=== PATIENT | female | born 1985 | race Hispanic/Latino ===

== ENCOUNTER 2022-05-13 09:31 | Emergency (ER) | payer OTHER ==
--- OUTSIDE RECORDS SUMMARY | 2022-05-13 09:35 | XMS REPORT | Continuity of Care Document ---
:1985 Author Organization [facility] t Address [address] [place] [address] Care Team Providers Name Role Phone MADDISON CAMERON Primary Care Physician Unavailable Neeru SHERMAN, Jn Vera Attending Clinician Miranda Mcintosh MD Attending Clinician MIRANDA MCINTOSH Attending Clinician Unavailable Miranda Mcintosh MD Admitting Clinician MIRANDA MCINTOSH Admitting Clinician Unavailable Payers Payer Name Policy Type Policy Number Effective Date Expiration Date [facility] [id number] 2016 CHOICE [place] ST[place] 00:00:00 Problems Condition Condition Condition Status Onset Resolution Last Treating Co mments Source Name Details Category Date Date Treatment Clinician Date Chest Chest Disease Active Univers pain, pain, 12-17 ity of unspec[place] d type 00 [place] Primary Primary Disease Active Univers hypertensi hypertensi - it y of on on 00:00: [address] Branch Anxiety Anxiety Disease Active Univers -23 ity of 00:00: [place] [address] Medical Branch Single Single Disease Active Univers liveborn, liveborn, 6-09 ity of born in born in 00:00: [facility], [facility], 00 [place]i [place] delivered delivered Bran ch by by delivery delivery Status Status Disease Active Univers post post 6 [place]y of repeat low repeat [place] transverse transverse 00 Me [place]ical [place] section section Obesity Obesity Disease Active Univers (BMI (BMI 6-08 ity of 30-39.9) 30-39.9) 00:00: [place] 00 Medical Branch 39 weeks 39 weeks Disease Active Unive rs gestation gestation 607 ity of of of 00:00: [place] 00 [facility] Previous Previous Disease Active Unive rs 607 ity of section section 00:00: [place] complicati complicati 00 Me dical ng Branch , , antepartum antepartum condition condition or or complicati complicati on on Encounter Encounter Disease Active Uni vers for tubal for tubal 08-31 ity of ligation ligation 00:00: [place] 00 Medical Branch Subchorion Subchorion Disease Active 2016-03 U nivers ic ic 1-30 ity of hematoma hematoma 00:00: [place] in first in first 00 Medica l trimester, trimester, Br anch single or single or unspecifie unspecifie d fetus d fetus Abdominal Abdominal Disease Active 2016-03 Uni vers pain pain 1-30 [place] of affecting affecting 00[place] [facility] Allergies, Adverse Reactions, Alerts Allergy Allergy Status Severity Reaction(s) Onset Inactive Treating Comm ents Source Name Type Date Date Clinician Loperami Propensi Active Rash 2016-03 Univer s de Hcl ty to 1-29 ity of adverse 00:00: [place] reaction 00 Medical s Branch LOPERAMI DRUG Active Rash 2016-03 Univers DE HCL INGREDI 1-29 ity of 00:00: [place] 00 Medical Branch Amoxicil Propensi Active Hives 2016-03 Univer s sommer ty to 0-06 ity of adverse 00:00: [place] reaction 00 Medical s Branch AMOXICIL DRUG Active Hives 2016-03 Univers SOMMER INGREDI 0-06 ity of 00:00: [place] 00 Medical Branch Social History Social Habit Start Date Stop Date Quantity Comments Source History [facility] o f Alcohol Frequency [place] M edical Branch History [facility] o f Alcohol Std [place] Medical Drinks Branch History [facility] o f Alcohol Binge [place] Medic al Branch Exposure to 2021-12-07 2021-12-17 Not sure University of SARS-CoV-2 00:00:00 08:32:00 [facility] (event) [place] Tobacco use and 2021-12-17 2021-12-17 Smokeless tobacco Un iversity of exposure 00:00:00 00:00:00 non-user [facility] Alcohol intake 2021-12-17 2021-12-17 Current drinker Unive rsity of 00:00:00 00:00:00 of alcohol [facility] (finding) [place] Alcohol Comment 2021-12-17 2021-12-17 social Universit y of 00:00:00 00:00:00 [facility] Sex Ass[birth year] At [birth year] Universit y of 00:00:00 00:00:00 [facility] Smoking Status Start Date Stop Date Source Never smoked tobacco [facility] Medications Ordered Filled Start Stop Current Ordering Indication Dosage Frequency Signature Comments Components Source Medication Medication Date Date Medication? Clinician (SIG) Name Name amLODIPine Yes 10mg Take 10 mg U nivers 10 mg 12-18 by mouth ity of tablet 16:40: in the [place] morning. Medical Branch maalox:diph 2021- No 15mL 15 mL, Uni vers enhydrAMINE 12-18 Oral, ity of :lidocaine 03:15: 02:39 ONCE, 1 [place] 2 % viscous 00 :00 dose, On Medi [place] 1:1:1 Fri Branch ([facility] 12/17/21 at [facility]) 2215, oral Routine suspension 15 mL amLODIPine Yes 10mg 10 mg, Unive rs (NORVASC) 12-18 Oral, QHS, ity of tablet 10 02:30: [place] dose [place] mg 00 (after Medical last Branch modificati on) on 12/17/21 at 2130, Until Discontinu ed, Routine zolpidem Yes 5mg 5 mg, Univers (AMBIEN) 12-18 Oral, ity of tablet 5 mg 02:21: QHSPRN, [place] 45 Starting Medical on Fri Branch 12/17/21 at 2121, Until Discontinu ed, Routine, Insomnia pantoprazol 202- No [id number] 40mg Take 1 Univers e 40 mg EC 9-24 10-25 tablet by ity of tablet 00:00: 04:59 mouth in [place] 00 :00 the Medical morning Branch for 30 days. enoxaparin Yes 40mg 40 mg, Unive rs (LOVENOX) 12-17 Subcutaneo ity of injection 22:00: [place], DAILY, [place] 40 mg 00 First dose Medical on Mon Branch 12/17/21 at 1700, Until Discontinu ed, Routine nitroglycer 0 Yes .4mg 0.4 mg, Uni vers in 12-17 Sublingual ity of (NITROSTAT) 19:54: , Q5MIN [place] sublingual 06 PRN, Medical tablet 0.4 Starting Branc h mg on Mon12/17/21 at 1454, Until Discontinu ed, Routine, Chest pain ondansetron Yes 4mg 4 mg, Slow Univers (ZOFRAN 12-17 IV Push, ity of (PF)) 19:53: Q6HPRN, [place] injection 4 54 Starting Medi [place] mg on Mon Branch 12/17/21 at 1453, Until Discontinu ed, Routine, Nausea and Vomiting (N/V) morpHINE (4 2021- No 4mg 4 mg, Slow Univers mg/mL) 12-17 IV Push, ity of injection 4 19:53: 19:52 Q4HPRN, [place] mg 51 :51 Starting Medical on Mon Branch 12/17/21 at 1453, Until 12/18/21 at 1452, Routine, Pain (scale 7-10) HYDROcodone 2021-0 2- No 1{tbl} 1 tablet, Univers -acetaminop 12-17 Oral, ity of hen (NORCO 19:53: 19:52 Q6HPRN, [place] 5) 5-325 mg 44 :44 Starting Medi [place] tablet 1 on Mon Branch tablet 12/17/21 at 1453, Until 12/19/21 at 1452, Routine, Pain (scale 4-6) acetaminoph 2021-0 Yes 650mg 650 mg, Un dee en 12-17 Oral, ity of (TYLENOL) 19:53: Q6HPRN, [place] tablet 650 39 Starting Medic al mg on Mon Branch 12/17/21 at 1453, Until Discontinu ed, Routine, Pain (scale 1-3) morpHINE (4 2021- No 4mg 4 mg, Slow Univers mg/mL) 12-17 IV Push, ity of injection 4 18:30: 17:44 ONCE, 1 [place] mg 00 :00 dose, On Medical Fri Branch 12/17/21 at 1330, MOY ketorolac 2021- No 30mg 30 mg, Unive rs (TORADOL) 12-17 Slow IV ity of injection 17:00: 16:11 Push, [place] 30 mg 00 :00 ONCE, 1 Medical dose, On Branch 12/17/21 at 1200, MOY morpHINE (4 2021- No 4mg 4 mg, Slow Univers mg/mL) 12-17 IV Push, ity of injection 4 17:00: 16:11 ONCE, 1 [place] mg 00 :00 dose, On Medical Fri Branch 12/17/21 at 1200, MOY iopamidol 2021- No [id number] 64mL 64 mL, U nivers (ISOVUE 12-17 Intravenou ity o f 370-500 mL) 16:27: 16:45 s, ONCE, 1 [place] injection 00 :00 dose, On Medica l 64 mL Fri Branch 12/17/21 at 1145, Routine ondansetron 2021- No 4mg 4 mg, Slow Univers (ZOFRAN 12-17 IV Push, ity of (PF)) 16:15: 16:11 ONCE, 1 [place] injection 4 00 :00 dose, On Medi [place] mg Fri Branch 12/17/21 at 1115, MOY 2021- No 1{tbl} Take 1 Univ ers vitamin 09-03 tablet by ity of w/FA tablet 00:00: 00:00 [place] 00 :00 daily. Medical Branch docusate 2021- No 240mg Take 1 Unive rs calcium 240 09-03 capsule by i ty of mg capsule 00:00: 00:00 mouth once [place] 00 :00 daily as Medical needed for Branch Constipati on. ferrous 2021- No 325mg Take 1 Univer s sulfate 325 09-03 tablet by it y of mg (65 mg 00:00: 00:00 mouth 2 [place] iron) 00 :00 (two) Medical tablet times Branch daily. HYDROcodone No 1{tbl} Take 1 U nivers -acetaminop 09-01 tablet by it y of hen (NORCO) 00:00: 00:00 [place] 10-325 mg 00 :00 every 6 Medical tablet (six) Branch hours as needed for Pain (scale 1-3), Pain (scale 4-6) or Pain (scale 7-10). ibuprofen 2021- No 800mg Take 1 Univ ers 800 mg 09-01 tablet by ity of tablet 00:00: 00:00 mouth [place] 00 :00 every 8 Medical (eight) Branch hours as needed for Pain (scale 1-3). Vital Signs Vital Name Observation Time Observation Value Comments Source Systolic blood 2021-12-18 12:36:00 125 mm[Hg] [facility] Diastolic blood 2021-12-18 12:36:00 80 mm[Hg] [facility] Heart rate 2021-12-18 12:36:00 81 /min [facility] Body temperature 2021-12-18 12:36:00 35.56 Nataliya [facility] Respiratory rate 2021-12-18 12:36:00 18 /min [facility] Oxygen saturation in 2021-12-18 12:36:00 98 /min [facility] Arterial blood by [facility] Pulse oximetry Branch Body weight 2021-12-18 08:30:00 95.981 kg [facility] BMI 2021-12-18 08:30:00 36.32 kg/m2 [facility] Body height 2021-12-17 20:10:00 162.6 cm [facility] Procedures Procedure Date / Time Performing Clinician Source Performed MAGNESIUM 2021-12-18 09:21:00 Miranda Mcintosh [place] o f [facility] BASIC METABOLIC PANEL 2021-12-18 09:21:00 Miranda Mcintosh [facility] (NA, K, CL, CO2, Medical Branch GLUCOSE, BUN, CREATININE, CA) LIPID PANEL 2021-12-18 09:21:00 Miranda Mcintosh [facility] ([id number])(TOTAL [facility] CHOLESTEROL, TRIGLYCERIDES, HDL) TROPONIN I 2021-12-17 23:36:00 Miranda Mcintosh [facility] TRANSTHORACIC ECHO (TTE) 2021-12-17 20:54:00 Miranda Mcintosh [facility] COMPLETE [facility] EKG-12 LEAD 2021-12-17 17:55:14 Jn Siddiqi [facility] CT CHEST PULMONARY 2021-12-17 16:31:00 Jn Siddiqi [facility] ANGIOGRAM [facility] RAPID INFLUENZA A/B 2021-12-17 13:53:00 Jn Siddiqi [facility] COVID-19 (ID NOW RAPID 2021-12-17 13:53:00 Jn Siddiqi [facility] TESTING) Medical Branch LIPASE 2021-12-17 13:43:00 Jn Siddiqi [facility] TEST, SERUM 2021-12-17 13:43:00 Neeru [facility] [place] [facility] TROPONIN I 2021-12-17 13:43:00 Neeru [facility] THYROID STIMULATING 2021-12-17 13:43:00 Jn Siddiqi [facility] HORMONE [facility] COMP. METABOLIC PANEL 2021-12-17 13:43:00 Neeru [facility] ([id number]) [facility] CBC WITH DIFF 2021-12-17 13:43:00 Jn Siddiqi [facility] GLYCOSYLATED HEMOGLOBIN 2021-12-17 13:43:00 [facility] [place] Encounters Start End Encounter Admission Attending Care Care Encounter Source Date/Time Date/Time Type Type Clinicians Facility Department ID 2021-12-17 2021-12-18 Emergency Jn Siddiqi [facility] [id number] Univers 08:36:00 16:40:00 Miranda Mcintosh [id number] [facility] [id number] [facility] [id number] [place] [id number] Branch 2021-12-17 2021-12-18 Outpatient X DAYNA [facility] [id number] Univers 08:36:00 16:40:00 MIRANDA phillip of [facility] Results Test Description Test Time Test Comments Results Result Comments Source Basic Metabolic Panel (NA, K, CL, CO2, GLUCOSE, BUN, 2021-11 10:02:19 CREATININE, CA) Test Item Value Reference Range Interpretation Comme nts NA (test code = 3862579785) 138 mmol/L 135-145 K (test code = 6620288969) 3.7 mmol/L 3.5-5 CL (test code = 9977689073) 105 mmol/L 98-108 CO2 TOTAL (test code = 6832181104) 26 mmol/L 23-31 AGAP (test code = 7493653062) 2-16 BUN (test code = 3851229323) 13 mg/dL 7-23 GLUCOSE (test code = 7903085699) 90 mg/dL 70-110 CREATININE (test code = 0.64 mg/dL 0.5-1.04 6667954591) CALCIUM (test code = 6491894024) 8.4 mg/dL 8.6-10.6 L eGFR (test code = 2057213982) mL/min/1.73m2 JOHN (test code = JOHN) Association of Glomerular Filtration Rate (GFR) and Staging of Kidney Disease* + +-------- + ------+| GFR (mL/min/1.73 m2) ?| With Kidney Damage ?| ?Without Kidney Damage+ +-- + +| ?>90 ?| ?Stage one ?| ? Normal ?+ +------- + -------+| ?60-89 ?| ?Stage two ?| ? Decreased GFR ? + +-------- + ------+| ?30-59 ?| ?Stage three ?| ? Stage three ? + +-------- + ------+| ?15-29 ?| ?Stage four ? | ? Stage four ?+ +------- + -------+| ?<15 (or dialysis) ? ?| ?Stage five ? | ? Stage five ?+ +------- + -------+ *Each stage assumes the associated GFR level has been in effect for at least three months. ?Stages 1 to 5, with or without kidney disease, indicate chronic kidney disease. Notes: Determination of stages one and two (with eGFR >59mL/min/1.73 m2) requires estimation of kidney damage for at least three months as defined by structural or functional abnormalities of the kidney, manifested by either:Pathological abnormalities or Markers of kidney damage (including abnormalities in the composition of the blood or urine or abnormalities in imaging tests). Lab Interpretation (test code = Abnormal 44502-7) [facility] [id number] 10:02:19 Test Item Value Reference Range Interpretation Comments MAGNESIUM (test code = 3724223339) 2.0 mg/dL 1.7-2.4 Lab Interpretation (test code = Normal 86832-6) [facility] (Total Cholesterol, Triglycerides, HDL)2021-12-18 10:02:19 Test Item Value Reference Range Interpretation Comments CHOL (test code = 168 mg/dL 120-200 4707482293) HDL (test code = 33 mg/dL See_Comment L [Automated message] 6224441479) The system [employer] generated this result transmit gibran reference range : >=50. The refer ence range was not u sed to interpret th is result as normal/abnormal . HDLC RATIO (test code = See_Comment H [Au tomated message] 9357231474) The system [employer] generated this result transmit gibran reference range : <=4.5. The refe rence range was not u sed to interpret th is result as normal/abnormal . TRIG (test code = 188 mg/dL 30-170 H 5414872279) LDL CHOL (test code = 97 mg/dL See_Comment [Auto mated message] 25967-9) The system [employer] generated this result transmit gibran reference range : <=160. The refe rence range was not u sed to interpret th is result as normal/abnormal . VLDL (test code = 38 mg/dL 5-60 9600714874) Lab Interpretation (test Abnormal code = 79020-3) [facility] [id number] 00:34:38 Test Item Value Reference Interpretation Comments Range TROPONIN I (test See_Comment [Automated code = 1746179841) message] The system which generated this result transmitted reference range : <=0.034. The reference range was not used to interpret this result as normal/abnormal . JOHN (test code = Reference (Normal) JOHN) Range (defined by the 99th percentile reference limit): <= 0.034 ng/mL Note: Cardiac troponin begins to rise 3-4 hours after the onset of ischemia. Repeat in 4-6 hours if the sample was drawn within 3-4 hours of the onset of the symptom and found normal. Diagnosis of myocardial injury is made with acute changes in cTn concentrations with at least one serial sample above the 99th percentile upper reference limit (URL), taken together with the patient's clinical presentation. Biotin has been reported to cause a negative bias, interpret results relative to patient's use of biotin. Lab Interpretation Normal (test code = 46466-9) [facility] CenterTransthoracic echo (TTE)2021-12-17 21:26:05 Test Item Value Reference Range Interpretation Comments Height (test code = in 7036795504) Weight (test code = lbs 2657956686) Systolic BP (test code = mmHg 2888302105) Diastolic BP (test code mmHg = 3267671087) Heart Rate (test code = bpm 4980783661) BSA (test code = 1.96 m2 8472807940) IVS (test code = 0.96 cm 3926157493) Interventricular Septum 0.96 cm Diastolic Thickness by 2D (test code = 1572242) LVPWD (test code = 0.91 cm 0675079326) PW (test code = 0.91 cm 0.6-1.7 3545747076) LVIDS (test code = 3.00 cm 8036607057) Left Ventricular End 35.3 mL Systolic Volume by Teichholz Method (test code = 5572700) EF(Teich) (test code = 70.80 % 0896799864) LVIDD (test code = 5.00 cm 8843055228) Left Ventricular End 120.9 mL Diastolic Volume by Teichholz Method (test code = 6328715) FS (test code = 40 % 4140637320) EF - 2D (test code = 70.80 % 90133528) LVOT diameter (test code 2.03 cm = 9674490357) LVOT area (test code = 3.20 cm2 2608233862) ACS (test code = 1.95 cm 5610608791) Ao root diam (test code 3.40 cm = 4106038439) Aortic root (test code = 3.4 cm 0116007383) Ao root annulus (test 3.4 cm code = 7937295026) LA size (test code = 3.9 cm 1314828081) E wave decelartion time 0.24 s (test code = 0966631326) MV Peak E Pedro Luis (test code 86.1 cm/s = 4967536523) MV Peak A Pedro Luis (test code 64.9 cm/s = 9779053081) E/A ratio (test code = ratio 1957177841) MV Prop V (test code = 42.70 cm/s 2176106363) Tapse (test code = 2.27 cm 4211807241) TR Peak Pedro Luis (test code = 169.3 cm/s 6755355210) Triscuspid Valve mmHg Regurgitation Peak Gradient (test code = 8220301284) LVOT stroke volume (test 82.60 cm3 code = 1427121290) LVOT peak pedro luis (test code 123.4 cm/s = 7017118052) LVOT mn grad (test code mmHg = 7712688639) AV LVOT peak gradient mmHg (test code = 7470111075) LVOT peak VTI (test code 25.5 cm = 5119571980) LV V1 mean (test code = 78.30 cm/s 6915863374) Aortic valve mean 94.1 cm/s velocity (test code = 5004446875) Ao peak pedro luis (test code = 151.8 cm/s 3356069400) Ao VTI (test code = 29.4 cm 0620265741) AV area by cont VTI 2.8 cm2 (test code = 1930752045) AV area peak pedro luis (test 2.6 cm2 code = 8358242682) Ao max PG (test code = 9.20 mm[Hg] 5295130082) AV peak gradient (test mmHg code = 7440105339) AV valve area (test code 2.80 cm2 = 0542643931) AV mean gradient (test mmHg code = 0361859627) MR max PG (test code = 53.40 mm[Hg] 7913408948) MR max pedro luis (test code = 365.40 cm/s 6021048348) Mr max pedro luis (test code = 365.4 m/s 3285101479) Radiology Study observation (narrative) (test code = 70832-4) JOHN (test code = JOHN) ?Left?Ventricle: Left ventricle size is normal. Normal wall thickness. Normal wall motion. Normal systolic function with a visually estimated EF of 60 - 65%. Indeterminate diastolic function. ?Tricuspid?Valve: Insufficient regurgant jet to estimate RVSP. ?RA pressure is 0-5 mmHg. ?Left?Atrium: Left atrium is mildly dilated. Left VentricleLeft ventricle size is normal. Normal wall thickness. Normal wall motion. Normal systolic function with a visually estimated EF of 60 - 65%. Indeterminate diastolic function.Right VentricleRight ventricle size is normal. Normal systolic function.Left AtriumLeft atrium is mildly dilated.Right AtriumRight atrium size is normal.Mitral ValveMitral valve structure is normal. Trace transvalvular regurgitation.Tricusp id ValveTricuspid valve structure is normal. Trace transvalvular regurgitation. Insufficient regurgant jet to estimate RVSP. RA pressure is 0-5 mmHg.Aortic ValveTricuspid.Pulmon ic ValveNot well visualized.Ascending AortaNormal sized aorta.PericardiumThe pericardium is normal.Study DetailsStudy quality was adequate. A complete echocardiogram was performed using 2D, color flow Doppler and spectral Doppler. The apical, parasternal and subcostal views were obtained. [facility] CenterGlycosylated Hemoglobin (A1C)2021-12-17 20:59:42 Test Item Value Reference Range Interpretation Comments HGB A1C (test code = 4.6 % 4-5.7 4548-4) JOHN (test code = JOHN) Reference RangesNormal: <5.7%Prediabetes: 5.7 - 6.4%Diabetes: > 6.5% Lab Interpretation (test Normal code = 00639-2) [facility] CenterTROPONIN [id number] 15:32:04 Test Item Value Reference Interpretation Comments Range TROPONIN I (test See_Comment [Automated code = 8503117232) message] The system which generated this result transmitted reference range : <=0.034. The reference range was not used to interpret this result as normal/abnormal . JOHN (test code = Reference (Normal) JOHN) Range (defined by the 99th percentile reference limit): <= 0.034 ng/mL Note: Cardiac troponin begins to rise 3-4 hours after the onset of ischemia. Repeat in 4-6 hours if the sample was drawn within 3-4 hours of the onset of the symptom and found normal. Diagnosis of myocardial injury is made with acute changes in cTn concentrations with at least one serial sample above the 99th percentile upper reference limit (URL), taken together with the patient's clinical presentation. Biotin has been reported to cause a negative bias, interpret results relative to patient's use of biotin. Lab Interpretation Normal (test code = 56209-4) [facility] CenterTHYROID STIMULATING [id number] 14:48:57 Test Item Value Reference Range Interpretation Comments TSH (test code = See_Comment [Automated message] 2676906343) The system [employer] generated this result transmitted ref erence range: 0.45 - 4 .70 mIU/L. The refe rence range was not u sed to interpret this result as normal/abnor mal. Lab Interpretation (test Normal code = 53157-0) [facility] CenterCOMP. METABOLIC PANEL (96471)2021-12-17 14:19:29 Test Item Value Reference Range Interpretation Comments NA (test code = 141 mmol/L 135-145 0723753600) K (test code = 4.0 mmol/L 3.5-5 7496463014) CL (test code = 104 mmol/L 98-108 0272557059) CO2 TOTAL (test code 24 mmol/L 23-31 = 7425765788) AGAP (test code = 2-16 1330750881) BUN (test code = 16 mg/dL 7-23 1409156253) GLUCOSE (test code = 100 mg/dL 70-110 0945851361) CREATININE (test code 0.62 mg/dL 0.5-1.04 = 6339753152) TOTAL BILI (test code 0.7 mg/dL 0.1-1.1 = 8999416460) CALCIUM (test code = 9.3 mg/dL 8.6-10.6 8355400268) T PROTEIN (test code 7.9 g/dL 6.3-8.2 = 4704632820) ALBUMIN (test code = 4.7 g/dL 3.5-5 6391300229) ALK PHOS (test code = 96 U/L 34-122 8386459726) ALTv (test code = 22 U/L 5-35 1742-6) AST(SGOT) (test code 21 U/L 13-40 = 4379989539) eGFR (test code = mL/min/1.73m2 0346567387) JOHN (test code = JOHN) Association of Glomerular Filtration Rate (GFR) and Staging of Kidney Disease* + + +- +| GFR (mL/min/1.73 m2) ?| With Kidney Damage ?| ?Without Kidney Damage+ ------+ ----+ ------+| ?>90 ?| ?Stage one ?| ? Normal ?+ -+ + -+| ?60-89 ?| ?Stage two ?| ? Decreased GFR ? + + +- +| ?30-59 ?| ?Stage three ?| ? Stage three ? + + +- +| ?15-29 ?| ?Stage four ? | ? Stage four ?+ -+ + -+| ?<15 (or dialysis) ? ?| ?Stage five ? | ? Stage five ?+ -+ + -+ *Each stage assumes the associated GFR level has been in effect for at least three months. ?Stages 1 to 5, with or without kidney disease, indicate chronic kidney disease. Notes: Determination of stages one and two (with eGFR >59mL/min/1.73 m2) requires estimation of kidney damage for at least three months as defined by structural or functional abnormalities of the kidney, manifested by either:Pathological abnormalities or Markers of kidney damage (including abnormalities in the composition of the blood or urine or abnormalities in imaging tests). [facility] CenterLIPASE2022-09-23 14:19:29 Test Item Value Reference Range Interpretation Comments LIPASE (test code = 3513697593) 119 U/L 0-220 Lab Interpretation (test code = Normal 93434-5) [facility] CenterPREGNANCY TEST, [id number] 14:18:08 Test Item Value Reference Range Interpretation Comments PREG SERUM (test code Negative = 7803981489) JOHN (test code = JOHN) Less than 10 IU/L. ?If low titer or ectopic is suspected, resubmit specimen in 48-72 hours. [facility] WITH [id number] 14:02:27 Test Item Value Reference Range Interpretation Comments WBC (test code = See_Comment [Automated 6690-2) message] The sy stem which generated this result transmitted reference range : 4.30 - 11.10 10*3/?L. The reference range was not used to interpret this result as normal/abnormal . RBC (test code = See_Comment [Automated 789-8) message] The sy stem which generated this result transmitted reference range : 3.93 - 5.25 10*6/?L. The reference range was not used to interpret this result as normal/abnormal . HGB (test code = 12.4 g/dL 11.6-15 718-7) HCT (test code = 34.9 % 35.7-45.2 L 4544-3) MCV (test code = 83.3 fL 80.6-95.5 787-2) MCH (test code = 29.6 pg 25.9-32.8 785-6) MCHC (test code = 35.5 g/dL 31.6-35.1 H 786-4) RDW-SD (test code = 35.9 fL 39-49.9 L 41321-8) RDW-CV (test code = 11.9 % 12-15.5 L 788-0) PLT (test code = See_Comment [Automated 777-3) message] The sy stem which generated this result transmitted reference range : 166 - 358 10*3/ ?L. The reference r mary beth was not used to interpret this result as normal/abnormal . MPV (test code = 11.5 fL 9.5-12.9 86377-7) NRBC/100 WBC (test See_Comment [Automat ed code = 3295900211) message] The system which generated this result transmitted reference range : 0.0 - 10.0 /100 WBCs. The refer ence range was not u sed to interpret th is result as normal/abnormal . NRBC x10^3 (test code See_Comment [Auto mated = [id number]) message] The s ystem which generated this result transmitted reference range : 10*3/?L. The reference range was not used to interpret this result as normal/abnormal . GRAN MAT (NEUT) % 64.2 % (test code = 770-8) IMM GRAN % (test code 0.30 % = 5812732334) LYMPH % (test code = 26.4 % 736-9) MONO % (test code = 6.2 % 5905-5) EOS % (test code = 1.9 % 713-8) BASO % (test code = 1.0 % 706-2) GRAN MAT x10^3(ANC) 4.63 10*3/uL 1.88-7.09 (test code = 0415272098) IMM GRAN x10^3 (test 0-0.06 code = 4352244129) LYMPH x10^3 (test code 1.90 10*3/uL 1.32-3.29 = 731-0) MONO x10^3 (test code 0.45 10*3/uL 0.33-0.92 = 742-7) EOS x10^3 (test code = 0.14 10*3/uL 0.03-0.39 711-2) BASO x10^3 (test code 0.07 10*3/uL 0.01-0.07 = 704-7) Lab Interpretation Abnormal (test code = 54819-2) [facility]"
[2022-05-13 11:05] LABS: SARS-COV-2 RT PCR NEGATIVE (NEGATIVE)
--- NOTE | 2022-05-13 11:25 | RAD REPORT ---
EXAM DESCRIPTION: RAD - Chest Single View - 05/13/2022 10:47 am CLINICAL HISTORY: fever/ sob COMPARISON: CHEST SINGLE VIEW dated 11/05/2008; CHEST PA AND LAT 2 VIEW dated 04/03/2008 FINDINGS: Lines: None. Lungs: No evidence of edema or pneumonia. Pleural: No significant pleural effusions or pneumothorax. Cardiac: The heart size is within normal limits. Mediastinum: Within normal limits. Bones: No acute fractures. Other: None IMPRESSION: No acute cardiopulmonary disease.
--- NOTE | 2022-05-13 11:32 | ER ---
Nurse's Notes [facility] Name: Mary Alvarenga Age: 37 yrs Sex: Female : 1985 Arrival Date: 05/13/2022 Time: 09:34 Bed 20 Private MD: Diagnosis: Acute upper respiratory infection, unspecified Presentation: 05/13 09:50 Chief complaint: Patient states: Sore throat, fever, chills, x 3 days, chest and back ph discomfort that started today, mild SOB, denies N/V/D. Coronavirus screen: Vaccine status: Patient reports receiving the 2nd dose of the covid vaccine. Ebola Screen: No symptoms or risks identified at this time. Initial Sepsis Screen: Does the patient meet any 2 criteria? No. Patient's initial sepsis screen is negative. Does the patient have a suspected source of infection? No. Patient's initial sepsis screen is negative. Risk Assessment: Do you want to hurt yourself or someone else? Patient reports no desire to harm self or others. Onset of symptoms was May 13, 2022. 09:50 Method Of Arrival: Ambulatory ph 09:50 Acuity: AMARILIS 3 ph Triage Assessment: 09:53 General: Appears in no apparent distress. Behavior is calm, cooperative, appropriate ph for age, Reports chills for fever for 2-3 days. Pain: Complains of pain in back and chest. Respiratory: Reports shortness of breath the patient has mild shortness of breath Denies cough. Musculoskeletal: Circulation, motion, and sensation intact. Range of motion: intact in all extremities. 11:53 Respiratory: Onset: The symptoms/episode began/occurred gradually. 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 - Social history:: Smoking status: Patient denies any tobacco usage or history of. Screenin:52 [facility] ED Fall Risk Assessment (Adult) History of falling in the last 3 months, ap3 including since admission No falls in past 3 months (0 pts). Abuse screen: Denies threats or abuse. Nutritional screening: No deficits noted. Tuberculosis screening: No symptoms or risk factors identified. Assessment: 10:33 Reassessment: see triage note. kr3 11:52 Cardiovascular: Patient's skin is warm and dry. Rhythm is regular. Respiratory: Airway ap3 is patent Respiratory effort is even, unlabored. 11:52 Respiratory: Breath sounds are clear. ap3 Vital Signs: 09:50 BP 118 / 80; Pulse 90; Resp 18; Temp 98.2(O); Pulse Ox 100% on R/A; Weight 86.18 kg; ph Height 5 ft. 4 in. (162.56 cm); 09:50 Body Mass Index 32.61 (86.18 kg, 162.56 cm) ph ED Course: 09:34 Patient arrived in ED. as 09:34 Ramona Cisneros PA-C is PHCP. sb4 09:34 Tim Valdez MD is Attending Physician. sb4 09:53 Triage completed. ph 09:53 Arm band placed on Patient placed in an exam room, on a stretcher. ph 09:57 Inocencia Montano, KELL is Primary Nurse. kr3 10:10 EKG done, by ED staff. tm3 10:19 Group A Streptococcus Rapid Sc Sent. kr3 10:19 COVID-19/FLU A+B Sent. kr3 10:48 Chest Single View In Process Unspecified. EDMS 11:31 Madeline Quarles MD is Referral Physician. sb4 11:35 Referral Physician role handed off by Madeline Quarles MD sb4 11:36 Jalil Onofre MD is Referral Physician. sb4 11:52 Patient has correct armband on for positive identification. Call light in reach. Side ap3 rails up X 1. Pulse ox on. NIBP on. Door closed. Noise minimized. Warm blanket given. 11:52 No provider procedures requiring assistance completed. Patient did not have IV access ap3 during this emergency room visit. Administered Medications: No medications were administered Medication: 11:52 VIS not applicable for this client. ap3 Outcome: 11:31 Discharge ordered by . sb4 11:52 Discharged to home ambulatory. ap3 11:52 Condition: good 11:52 Discharge instructions given to patient, Instructed on discharge instructions, follow up and referral plans. Demonstrated understanding of instructions, follow-up care, Prescriptions given X 1. 11:53 Patient left the ED. ap3 Signatures: Dispatcher [employer] EDMS Merrick Lebroni tm3 Madyson Acosta Patricia, RN RN Jailyn Feldman RN RN ap3 Inocencia Montano RN RN kr3 Ramona Cisneros, JAYLEN YORK sb4
--- NOTE | 2022-05-13 11:32 | EDPHYS ---
Physician Documentation [facility] Name: Mary Alvarenga Age: 37 yrs Sex: Female : 1985 Arrival Date: 05/13/2022 Time: 09:34 Bed 20 Private MD: ED Physician Tim Valdez HPI: 05/13 09:54 This 37 yrs old Female presents to ER via Ambulatory with complaints of Fever, sb4 Shortness Of Breath. 09:54 37 year old female with past medical history of hypertension who states she started sb4 having a sore throat 2 days ago and has felt febrile on and off. She also reports feeling some shortness of breath and chest tightness today. She denies any sick contacts. Denies alleviating or aggravating factors. No wheezing or cough. . 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 - Social history:: Smoking status: Patient denies any tobacco usage or history of. ROS: 09:54 Eyes: Negative for injury, pain, redness, and discharge, ENT: Negative for injury, sb4 pain, and discharge, Cardiovascular: Negative for chest pain, palpitations, and edema, Abdomen/GI: Negative for abdominal pain, nausea, vomiting, diarrhea, and constipation, MS/Extremity: Negative for injury and deformity, Skin: Negative for injury, rash, and discoloration, Neuro: Negative for headache, weakness, numbness, tingling, and seizure. 09:54 Constitutional: Positive for fever, malaise. 09:54 Respiratory: Positive for shortness of breath, Chest tightness with breathing. Exam: 09:54 Constitutional: This is a well developed, well nourished patient who is awake, alert, sb4 and in no acute distress. Head/Face: Normocephalic, atraumatic. Eyes: Extra-ocular motions intact. Periorbital areas with no swelling, redness, or edema. ENT: Mucous membranes moist. Tonsils without erythema or exudate. TMs without bulging/erythema. No nasal discharge. Cardiovascular: Regular rate and rhythm with a normal S1 and S2. Respiratory: Lungs have equal breath sounds bilaterally, clear to auscultation and percussion. No rales, rhonchi or wheezes noted. No increased work of breathing, no retractions or nasal flaring. Abdomen/GI: Soft, non-tender, no distension. Skin: Warm, dry with normal turgor. Normal color with no rashes, no lesions, and no evidence of cellulitis. MS/ Extremity: Pulses equal, no cyanosis. Neurovascular intact. Full, normal range of motion. 10:25 ECG was reviewed by the Attending Physician. sb4 Vital Signs: 09:50 BP 118 / 80; Pulse 90; Resp 18; Temp 98.2(O); Pulse Ox 100% on R/A; Weight 86.18 kg; ph Height 5 ft. 4 in. (162.56 cm); 09:50 Body Mass Index 32.61 (86.18 kg, 162.56 cm) ph MDM: 09:49 Patient medically screened. sb4 09:54 Differential diagnosis: viral Infection, bacterial infection, URI, bronchitis, sb4 pneumonia. 11:26 ED course: awaiting radiology CXR read. sb4 11:29 Data reviewed: vital signs, nurses notes, lab test result(s), Flu: negative COVID, sb4 strep, EKG, radiologic studies, plain films, and as a result, I will discharge patient. Data reviewed: and as a result, I will discharge patient. I considered the following discharge prescriptions or medication management in the emergency department I discussed and recommended Over The Counter medications, Antibiotics: At this time antibiotics are not recommended, Antivirals: At this time, antivirals are not recommended. Independent interpretation of the following test(s) in the Emergency Department Radiology Department Ultrasound: My interpretation is My interpretation of chest xray- no consolidation, no pulmonary edema, no pneumothorax . Special discussion: I discussed with the patient/guardian in detail that at this point there is no indication for admission to the hospital. It is understood, however, that if the symptoms persist or worsen the patient needs to return immediately for re-evaluation. I discussed with the patient/guardian that the patient's current presentation does not indicate dosing of antibiotics. They should follow-up with their primary care provider and return if the symptoms persist or progress. 05/13 10:01 Order name: COVID-19/FLU A+B; Complete Time: 11:05 EDNE 05/13 10:01 Order name: Group A Streptococcus Rapid Sc; Complete Time: 10:35 EDMS 05/13 10:37 Order name: Throat Culture EDMS 05/13 10:01 Order name: Chest Single View; Complete Time: 11:26 EDNE 05/13 10:01 Order name: EKG - Nurse/Tech; Complete Time: 10:11 sb4 EC:25 Rate is 75 beats/min. Rhythm is regular, Normal Sinus Rhythm. QRS Prim is Normal. ME sb4 interval is normal at 156 msec. QRS interval is normal at 96 msec. QT interval is normal at 406 msec. Administered Medications: No medications were administered Disposition: 14:43 Co-signature as Attending Physician, Tim Valdez MD I reviewed the patient's care rt provided by the Advanced Practice Provider and agree with the diagnosis and treatment plan. Disposition Summary: 05/13/22 11:31 Discharge Ordered Location: Home sb4 Problem: new sb4 Symptoms: are unchanged sb4 Condition: Stable sb4 Diagnosis - Acute upper respiratory infection, unspecified sb4 Followup: sb4 - With: Madeline Quarles MD - When: As needed - Reason: Recheck today's complaints, Continuance of care, Re-evaluation by your physician Followup: sb4 - With: Jalil Onofre MD - When: As needed - Reason: Recheck today's complaints, Continuance of care, Re-evaluation by your physician Discharge Instructions: - Discharge Summary Sheet sb4 - Upper Respiratory Infection, Adult, [id number] sb4 - Fever, Adult, [id number] sb4 Forms: - Medication Reconciliation Form sb4 - Work release form sb4 - Thank You Letter sb4 - Antibiotic Education sb4 - Prescription Opioid Use sb4 Prescriptions: - Medrol (Jere) 4 mg Oral Tablets, Dose Pack - take 1 tablet by ORAL route as directed - follow package instructions; 1 sb4 packet; Refills: 0, Product Selection Permitted Signatures: Dispatcher [employer] Josefina Law RN RN Ramona Vega PA-C PA-C sb4 Tim Valdez MD MD rt Corrections: (The following items were deleted from the chart) 11:49 11:46 Chest Single View+[email or web address] ordered. EDMS EDMS
[2022-05-13 12:09] VITALS: BP 118/80; TEMP 98.2; O2SAT 100
--- NOTE | 2022-05-16 12:46 | EKG ---
Test Date: 2022-05-13 Test Time: 10:09:22 Stonehand: BOGDAN MEASUREMENT RESULTS: Intervals: Rate: 75 RI: 156 QRSD: 96 QT: 406 QTc: 453 [place]: P: 62 RI: 156 QRS: 63 T: 56 INTERPRETIVE STATEMENTS: Normal sinus rhythm Normal ECG No previous ECG available for comparison Electronically Signed On 05-16-22 12:38:41 RADIO RECORDER by Haresh Grant
== END 2022-05-13 11:53 | disposition home or self-care (01) ==
LOC: ER 09:31
DX: J06.9 Acute upper respiratory infection, unspecified (principal); Z20.822 Contact with and (suspected) exposure to COVID-19; I10 Essential (primary) hypertension; Z88.1 Allergy status to other antibiotic agents
CPT/HCPCS: 87070; 87081; 0240U; 71045; 99284; 93005

== ENCOUNTER 2022-08-09 18:54 | Emergency (ER) | payer OTHER ==
--- OUTSIDE RECORDS SUMMARY | 2022-08-09 19:07 | XMS REPORT | Continuity of Care Document ---
:1985 Author Organization [facility] t Address [address] [facility] [address] [place] [address] Care Team Providers Name Role Phone MADDISON CAMERON Primary Care Physician Unavailable Neeru SHERMAN, Jn Vera Attending Clinician Miranda Mcintosh MD Attending Clinician MIRANDA MCINTOSH Attending Clinician Unavailable Miranda Mcintosh MD Admitting Clinician MIRANDA MCINTOSH Admitting Clinician Unavailable Payers Payer Name Policy Type Policy Number Effective Date Expiration Date [facility] [id number] 2016 CHOICE [place] STAR 00:00:00 Problems Condition Condition Condition Status Onset Resolution Last Treating Co mments Source Name Details Category Date Date Treatment Clinician Date Chest Chest Disease Active Univers pain, pain, 12-17 ity of [place] 00 Medical Branch Primary Primary Disease Active Univers hypertensi hypertensi - it y of on on 00:00: [address] Branch Anxiety Anxiety Disease Active Univers -23 ity of 00:00: [place] [address] Medical Branch Single Single Disease Active Univers liveborn, liveborn, 6-09 ity of born in born in 00:00: [facility], [facility], 00 Medi elton delivered delivered Bran ch [...] of of 00:00: [place] 00 [facility] Previous Previous Disease Active Unive rs 607 [...] [place] [facility] Allergies, Adverse Reactions, Alerts Allergy Allergy Status [...] Date Stop Date Quantity Comments Source History Formerly [facility], [facility] o f Alcohol Frequency [place] M edical Branch History Formerly [facility], [facility] o f Alcohol Std [place] Medical Drinks Branch History Formerly [facility], [facility] o f Alcohol Binge [place] Medic al Branch Exposure to 2021-12-07 2021-12-17 Not sure University of SARS-CoV-2 00:00:00 08:32:00 [facility] (event) [place] Tobacco use and 2021-12-17 2021-12-17 Smokeless tobacco Un iversity of exposure 00:00:00 00:00:[address] [facility] Alcohol intake 2021-12-17 2021-12-17 Current drinker Unive rsity of 00:00:00 00:00:00 of alcohol [facility] (finding) [place] Alcohol Comment 2021-12-17 2021-12-17 social Universit y of 00:00:00 00:00:[address] [facility] Sex Assigned At [birth year] Universit y of 00:00:00 00:00:[address] [facility] Smoking Status Start Date Stop Date Source Never smoked tobacco [facility] Medications Ordered Filled Start Stop Current Ordering Indication Dosage Frequency Signature Comments Components Source Medication Medication Date Date Medication? Clinician (SIG) Name Name amLODIPine Yes 10mg Take 10 mg U nivers 10 mg 12-18 by mouth ity of tablet 16:40: in the [place] morning. Medical Branch maalox:diph 2021- No 15mL 15 mL, Uni vers enhydrAMINE 12-18 Oral, ity of :lidocaine 03:15: 02:39 ONCE, 1 [place] as 2 % viscous 00 :00 dose, On Medi elton 1:1:1 Fri Branch ([facility] 12/17/21 at [facility]) 2215, oral Routine suspension 15 mL [...] Discontinu ed, Routine, Insomnia pantoprazol 202- No [id number] 40mg Take 1 Univers e 40 mg [...] 5) 5-325 mg 44 :44 Starting Medi leton tablet 1 on Mon Branch tablet 12/17/21 [...] 12/17/21 at 1200, [place]Y iopamidol 2021- No [id number] 64mL 64 mL, U nivers (ISOVUE 12-17 [...] Source Systolic blood 2021-12-18 12:36:00 125 mm[Hg] [facility] Diastolic blood 2021-12-18 12:36:00 80 mm[Hg] [facility] Heart rate 2021-12-18 12:36:00 81 /min [facility] Body temperature 2021-12-18 12:36:00 35.56 Nataliya [facility] Respiratory rate 2021-12-18 12:36:00 18 /min [facility] Oxygen saturation in 2021-12-18 12:36:00 98 /min [facility] Arterial blood by [facility] Pulse oximetry Branch Body weight 2021-12-18 08:30:00 95.981 kg [facility] BMI 2021-12-18 08:30:00 36.32 kg/m2 [facility] Body height 2021-12-17 20:10:00 162.6 cm [facility] Procedures Procedure Date / Time Performing Clinician Source Performed MAGNESIUM 2021-12-18 09:21:00 Miranda Mcintosh [place] [facility] BASIC METABOLIC PANEL 2021-12-18 09:21:00 Miranda Mcintosh [facility] (NA, K, CL, CO2, Medical Branch GLUCOSE, BUN, CREATININE, CA) LIPID PANEL 2021-12-18 09:21:00 Miranda Mcintosh [facility] ([id number])(TOTAL [facility] CHOLESTEROL, TRIGLYCERIDES, HDL) TROPONIN I 2021-12-17 23:36:00 Miranda Mcintosh [facility] TRANSTHORACIC ECHO (TTE) 2021-12-17 20:54:00 Miranda Mcintosh [facility] COMPLETE [facility] EKG-12 LEAD 2021-12-17 17:55:[address] [facility] CT CHEST PULMONARY 2021-12-17 16:31:00 Jn Siddiqi [facility] ANGIOGRAM [facility] RAPID INFLUENZA A/B 2021-12-17 13:53:00 Jn Siddiqi [facility] COVID-19 (ID NOW RAPID 2021-12-17 13:53:00 Jn Siddiqi [facility] TESTING) Medical Branch LIPASE 2021-12-17 13:43:[address] [facility] TEST, SERUM 2021-12-17 13:43:00 Neeru [facility] TROPONIN I 2021-12-17 13:43:00 Neeru [facility] THYROID STIMULATING 2021-12-17 13:43:00 Jn Siddiqi [facility] HORMONE [facility] COMP. METABOLIC PANEL 2021-12-17 13:43:00 Neeru [facility] ([id number]) [facility] CBC WITH DIFF 2021-12-17 13:43:00 Jn Siddiqi [facility] GLYCOSYLATED HEMOGLOBIN 2021-12-17 13:43:00 [facility] [place] Encounters Start End Encounter Admission Attending Care Care Encounter Source Date/Time Date/Time Type Type Clinicians Facility Department ID 2021-12-17 2021-12-18 Emergency Jn Siddiqi [facility] [id number] Univers 08:36:00 16:40:00 Miranda Mcintosh [id number] [facility] [id number] [facility] [id number] [place] [id number] Branch 2021-12-17 2021-12-18 Outpatient X DAYNA [facility] [id number] Univers 08:36:00 16:40:[address] [facility] Results Test Description Test Time Test Comments Results Result Comments Source Basic Metabolic Panel (NA, K, CL, CO2, GLUCOSE, BUN, 2021-11 10:02:19 CREATININE, CA) Test Item Value Reference Range Interpretation Comme nts NA (test code = 6876404375) 138 mmol/L 135-145 K (test code = 4226191907) 3.7 mmol/L 3.5-5 CL (test code = 4134868285) 105 mmol/L 98-108 CO2 TOTAL (test code = 1785998206) 26 mmol/L 23-31 AGAP (test code = 9088934792) 2-16 BUN (test code = 6614338364) 13 mg/dL 7-23 GLUCOSE (test code = 5272819474) 90 mg/dL 70-110 CREATININE (test code = 0.64 mg/dL 0.5-1.04 5637454757) CALCIUM (test code = 8870201640) 8.4 mg/dL 8.6-10.6 L eGFR (test code = 7320053423) mL/min/1.73m2 JOHN (test code = JOHN) Association [...] tests). Lab Interpretation (test code = Abnormal 25001-9) [facility] [id number] 10:02:19 Test Item Value Reference Range Interpretation Comments MAGNESIUM (test code = 8180511802) 2.0 mg/dL 1.7-2.4 Lab Interpretation (test code = Normal 76018-7) [facility] (Total Cholesterol, Triglycerides, HDL)2021-12-18 10:02:19 Test Item Value Reference Range Interpretation Comments CHOL (test code = 168 mg/dL 120-200 5669951233) HDL (test code = 33 mg/dL See_Comment L [Automated message] 1697873231) The system Viibar generated this result transmit gibran reference range : >=50. The refer ence range was not u sed to interpret th is result as normal/abnormal . HDLC RATIO (test code = See_Comment H [Au tomated message] 9683788246) The system Viibar generated this result transmit gibran reference range : <=4.5. The refe rence range was not u sed to interpret th is result as normal/abnormal . TRIG (test code = 188 mg/dL 30-170 H 0999443149) LDL CHOL (test code = 97 mg/dL See_Comment [Auto mated message] 10474-0) The system Viibar generated this result transmit gibran reference range : <=160. The refe rence range was not u sed to interpret th is result as normal/abnormal . VLDL (test code = 38 mg/dL 5-60 8058386138) Lab Interpretation (test Abnormal code = 30643-5) [facility] Center[facility]rop[facility] [id number] 00:34:38 Test Item Value Reference Interpretation Comments Range TROPONIN I (test See_Comment [Automated code = 9566340389) message] The system which generated this result [...] biotin. Lab Interpretation Normal (test code = 98316-2) [facility] CenterTransthoracic echo (TTE)2021-12-17 21:26:05 Test Item Value Reference Range Interpretation Comments Height (test code = in 3565039123) Weight (test code = lbs 5701099293) Systolic BP (test code = mmHg 0150538720) Diastolic BP (test code mmHg = 5548980785) Heart Rate (test code = bpm 9153010248) BSA (test code = 1.96 m2 2802619577) IVS (test code = 0.96 cm 4569870874) Interventricular Septum 0.96 cm Diastolic Thickness by 2D (test code = 9015708) LVPWD (test code = 0.91 cm 2947801694) PW (test code = 0.91 cm 0.6-1.8 8296530120) LVIDS (test code = 3.00 cm 9554090124) Left Ventricular End 35.3 mL Systolic Volume by Teichholz Method (test code = 1562142) EF(Teich) (test code = 70.80 % 6028234336) LVIDD (test code = 5.00 cm 1755238552) Left Ventricular End 120.9 mL Diastolic Volume by Teichholz Method (test code = 5854835) FS (test code = 40 % 5183327777) EF - 2D (test code = 70.80 % 19530456) LVOT diameter (test code 2.03 cm = 9064491317) LVOT area (test code = 3.20 cm2 9660525033) ACS (test code = 1.95 cm 9064029572) Ao root diam (test code 3.40 cm = 5461435027) Aortic root (test code = 3.4 cm 8230746364) Ao root annulus (test 3.4 cm code = 1836778621) LA size (test code = 3.9 cm 6212647359) E wave decelartion time 0.24 s (test code = 0976079995) MV Peak E Pedro Luis (test code 86.1 cm/s = 0076268024) MV Peak A Pedro Luis (test code 64.9 cm/s = 4818310629) E/A ratio (test code = ratio 0432530505) MV Prop V (test code = 42.70 cm/s 9276444200) Tapse (test code = 2.27 cm 4316294984) TR Peak Pedro Luis (test code = 169.3 cm/s 9599186984) Triscuspid Valve mmHg Regurgitation Peak Gradient (test code = 0003949287) LVOT stroke volume (test 82.60 cm3 code = 2101832341) LVOT peak pedro luis (test code 123.4 cm/s = 5032320816) LVOT mn grad (test code mmHg = 7704843282) AV LVOT peak gradient mmHg (test code = 3139346498) LVOT peak VTI (test code 25.5 cm = 0094024507) LV V1 mean (test code = 78.30 cm/s 1157207381) Aortic valve mean 94.1 cm/s velocity (test code = 0966353763) Ao peak pedro luis (test code = 151.8 cm/s 9945362428) Ao VTI (test code = 29.4 cm 3275094295) AV area by cont VTI 2.8 cm2 (test code = 3554621351) AV area peak pedro luis (test 2.6 cm2 code = 5126736722) Ao max PG (test code = 9.20 mm[Hg] 2811839443) AV peak gradient (test mmHg code = 9598041259) AV valve area (test code 2.80 cm2 = 1199572224) AV mean gradient (test mmHg code = 2410180236) MR max PG (test code = 53.40 mm[Hg] 8236980403) MR max pedro luis (test code = 365.40 cm/s 8062859625) Mr max pedro luis (test code = 365.4 m/s 1941438835) Radiology Study observation (narrative) (test code = 71603-1) JOHN (test code = JOHN) ?Left?Ventricle: Left [...] apical, parasternal and subcostal views were obtained. [facility] CenterGlycosylated Hemoglobin (A1C)2021-12-17 20:59:42 Test Item Value Reference Range Interpretation Comments HGB A1C (test code = 4.6 % 4-5.7 4548-4) JOHN (test code = JOHN) Reference RangesNormal: <5.7%Prediabetes: 5.7 - 6.4%Diabetes: > 6.5% Lab Interpretation (test Normal code = 26165-9) [facility] CenterTROP[facility]IN [id number] 15:32:04 Test Item Value Reference Interpretation Comments Range TROPONIN I (test See_Comment [Automated code = 2722749663) message] The system which generated this result [...] biotin. Lab Interpretation Normal (test code = 07205-2) [facility] CenterTHYROID STIMULATING [id number] 14:48:57 Test Item Value Reference Range Interpretation Comments TSH (test code = See_Comment [Automated message] 7637768808) The system Viibar generated this result transmitted ref erence range: 0.45 - 4 .70 mIU/L. The refe rence range was not u sed to interpret this result as normal/abnor mal. Lab Interpretation (test Normal code = 76041-4) [facility] CenterCOMP. METABOLIC PANEL (57553)2021-12-17 14:19:29 Test Item Value Reference Range Interpretation Comments NA (test code = 141 mmol/L 135-145 1706139346) K (test code = 4.0 mmol/L 3.5-5 8453412492) CL (test code = 104 mmol/L 98-108 1633605633) CO2 TOTAL (test code 24 mmol/L 23-31 = 8714188753) AGAP (test code = 2-16 7206082554) BUN (test code = 16 mg/dL 7-23 3938039085) GLUCOSE (test code = 100 mg/dL 70-110 4909248921) CREATININE (test code 0.62 mg/dL 0.5-1.04 = 6921941230) TOTAL BILI (test code 0.7 mg/dL 0.1-1.1 = 7473192339) CALCIUM (test code = 9.3 mg/dL 8.6-10.6 6213723168) T PROTEIN (test code 7.9 g/dL 6.3-8.2 = 9426117059) ALBUMIN (test code = 4.7 g/dL 3.5-5 9299908314) ALK PHOS (test code = 96 U/L 34-122 9726333927) ALTv (test code = 22 U/L 5-35 1742-6) AST(SGOT) (test code 21 U/L 13-40 = 1704641981) eGFR (test code = mL/min/1.73m2 8443204706) JOHN (test code = JOHN) Association of [...] or urine or abnormalities in imaging tests). [facility] CenterLIPASE2022-09-23 14:19:29 Test Item Value Reference Range Interpretation Comments LIPASE (test code = 9187732096) 119 U/L 0-220 Lab Interpretation (test code = Normal 93847-0) [facility] CenterPREGNANCY TEST, [id number] 14:18:08 Test Item Value Reference Range Interpretation Comments PREG SERUM (test code Negative = 7791299340) JOHN (test code = JOHN) Less than 10 IU/L. ?If low titer or ectopic is suspected, resubmit specimen in 48-72 hours. [facility] WITH [id number] 14:02:27 Test Item Value Reference Range Interpretation [...] (test code = 35.9 fL 39-49.9 L 20133-5) RDW-CV (test code = 11.9 % 12-15.5 L 788-0) PLT (test code = See_Comment [Automated 777-3) message] The sy stem which generated this result transmitted reference range : 166 - 358 10*3/ ?L. The reference r mary beth was not used to interpret this result as normal/abnormal . MPV (test code = 11.5 fL 9.5-12.9 27089-2) NRBC/100 WBC (test See_Comment [Automat ed code = 9363885646) message] The system which generated this result transmitted reference range : 0.0 - 10.0 /100 WBCs. The refer ence range was not u sed to interpret th is result as normal/abnormal . NRBC x10^3 (test code See_Comment [Auto mated = 0737704551) message] The s ystem which generated this result transmitted reference range : 10*3/?L. The reference range was not used to interpret this result as normal/abnormal . GRAN MAT (NEUT) % 64.2 % (test code = 770-8) IMM GRAN % (test code 0.30 % = 8958579412) LYMPH % (test code = 26.4 % 736-9) MONO % (test code = 6.2 % 5905-5) EOS % (test code = 1.9 % 713-8) BASO % (test code = 1.0 % 706-2) GRAN MAT x10^3(ANC) 4.63 10*3/uL 1.88-7.09 (test code = 3048339160) IMM GRAN x10^3 (test 0-0.06 code = 0218857415) LYMPH x10^3 (test code 1.90 10*3/uL 1.32-3.29 = 731-0) MONO x10^3 (test code 0.45 10*3/uL 0.33-0.92 = 742-7) EOS x10^3 (test code = 0.14 10*3/uL 0.03-0.39 711-2) BASO x10^3 (test code 0.07 10*3/uL 0.01-0.07 = 704-7) Lab Interpretation Abnormal (test code = 97068-6) [facility]"
--- NOTE | 2022-08-09 20:27 | RAD REPORT ---
EXAM DESCRIPTION: RAD - Knee Right 3 View - 08/09/2022 8:19 pm CLINICAL HISTORY: PAIN COMPARISON: No comparisons FINDINGS: No bone or joint abnormality is seen.
[2022-08-09] MEDS ORDERED: ACETAMINOPHEN 500 MG TAB ONE (20:31)
--- NOTE | 2022-08-09 20:55 | ER ---
Nurse's Notes [facility] Name: Mary Alvarenga Age: 37 yrs Sex: Female : 1985 Arrival Date: 08/09/2022 Time: 18:54 Bed 11 Private MD: Diagnosis: Pain in right knee Presentation: 08/09 19:09 Chief complaint: Patient states: Leg gave up and fell landing right knee, had prior nj1 injury (about 2 months ago). Wearing knee sleeve, seeing ortho for prior injury. Coronavirus screen: Vaccine status: Patient reports receiving the 2nd dose of the covid vaccine. Ebola Screen: Patient denies travel to an Ebola-affected area in the 21 days before illness onset. 19:09 Method Of Arrival: Ambulatory [facility] 19:12 Initial Sepsis Screen: Does the patient meet any 2 criteria? HR > [address] [facility] initial sepsis screen is negative. Does the patient have a suspected source of infection? No. Patient's initial sepsis screen is negative. Risk Assessment: Do you want to hurt yourself or someone else? Patient reports no desire to harm self or others. Onset of symptoms was August 09, 2022. 19:12 Acuity: AMARILIS 3 nj1 Historical: - Allergies: 19:13 Amoxicillin; nj1 - PMHx: 19:13 Hypertensive disorder; nj1 - PSHx: 19:13 section; Ligation of fallopian tube; Cholecystectomy; nj1 - Immunization history:: Client reports receiving the 2nd dose of the Covid vaccine. - Social history:: Smoking status: Patient denies any tobacco usage or history of. Screenin:54 [facility] ED Fall Risk Assessment (Adult) History of falling in the last 3 months, pf1 including since admission No falls in past 3 months (0 pts) Confusion or Disorientation No (0 pts) Intoxicated or Sedated No (0 pts) Impaired Gait Yes (1 pt) Mobility Assist Device Used No (0 pt) Altered Elimination No (0 pt) Score/Fall Risk Level 0 - 2 = Low Risk Oriented to surroundings, Maintained a safe environment, Educated pt \T\ family on fall prevention, incl call for assistance when getting out of bed, Assessed \T\ reinforced patient's understanding of fall precautions, Provided non-skid footwear, Hourly rounding (assess needs \T\ fall precautionary measures) done, Used ambulatory aids as needed (educated on \T\ assisted with), Used gait belt as appropriate. Abuse screen: Denies threats or abuse. Nutritional screening: No deficits noted. Tuberculosis screening: No symptoms or risk factors identified. Assessment: 20:20 General: Appears in no apparent distress. uncomfortable, well groomed, well developed, pf1 Behavior is calm, cooperative, appropriate for age, quiet. 20:20 Pain: Complains of pain in right knee pain of 10 Pain currently is 10 out of 10 on a pf1 pain scale. Pain began 2 months ago, worse today after falling onto right knee when right knee gave out and fell onto right knee. Neuro: Level of Consciousness is awake, alert, obeys commands, Oriented to person, place, time, situation. Cardiovascular: No deficits noted. Capillary refill < 3 seconds Patient's skin is warm and dry. Respiratory: No deficits noted. Airway is patent Trachea midline Respiratory effort is even, unlabored, Respiratory pattern is regular, symmetrical. GI: No deficits noted. No signs and/or symptoms were reported involving the gastrointestinal system. : No deficits noted. No signs and/or symptoms were reported regarding the genitourinary system. EENT: No deficits noted. No signs and/or symptoms were reported regarding the EENT system. Derm: No deficits noted. No signs and/or symptoms reported regarding the dermatologic system. Musculoskeletal: Reports pain in right knee. Vital Signs: 19:09 BP 150 / 105; Pulse 106; Resp 18; Temp 98.2; Pulse Ox 100% ; Weight 90.72 kg; Height 5 nj1 ft. 4 in. ; Pain 10/10; 20:20 BP 150 / 99; Pulse 92; Resp 16; Pulse Ox 100% on R/A; Pain 10/10; pf1 21:00 BP 144 / 78; Pulse 89; Resp 16; Pulse Ox 99% ; Pain 5/10; pf1 19:09 Body Mass Index 34.33 (90.72 kg, 162.56 cm) nj1 19:09 Pain Scale: Adult nj1 20:20 Pain Scale: Adult pf1 21:00 Pain Scale: Adult pf1 ED Course: 18:58 Patient arrived in ED. ja2 19:02 David Monge PA is PHCP. cp 19:02 Huy Sebastian DO is Attending Physician. cp 19:13 Triage completed. nj1 19:14 Arm band placed on left wrist. nj1 20:20 XRAY Knee RIGHT 3 view In Process Unspecified. EDMS 20:20 Patient has correct armband on for positive identification. Bed in low position. Call pf1 light in reach. 20:55 Master Sage MD is Referral Physician. cp 20:55 No provider procedures requiring assistance completed. Patient did not have IV access pf1 during this emergency room visit. 21:18 Crutch training done. Knee immobilizer applied on right knee. with crutches. pf1 Administered Medications: 20:30 Drug: Acetaminophen PO 1000 mg Route: PO; mb9 20:55 Follow up: Response: No adverse reaction; Marked relief of symptoms; Pain is decreased pf1 21:00 Drug: Ketorolac IM 30 mg Route: IM; Site: right ventrogluteal; pf1 21:18 Follow up: Response: No adverse reaction; Marked relief of symptoms; Pain is decreased pf1 Medication: 21:00 VIS not applicable for this client. pf1 Outcome: 20:55 Discharge ordered by MD. cp 21:17 Discharged to home via wheelchair, with crutches. pf1 21:17 Condition: stable 21:17 Discharge instructions given to patient, Instructed on discharge instructions, follow up and referral plans. Demonstrated understanding of instructions, follow-up care, medications, Prescriptions given X 1. 21:18 Patient left the ED. pf1 Signatures: Dispatcher [employer] EDMS David Monge PA PA cp Alexander, Jessica ja2 Breneman, Mary Beth RN RN mb9 Karyn Rachel RN RN pf1 Saadia Noguera RN RN nj1 Corrections: (The following items were deleted from the chart) 19:14 19:09 Pulse 106bpm; Resp 18bpm; Pulse Ox 100%; Temp 98.2F; 90.72 kg; Height 5 ft. 4 nj1 in.; BMI: 34.3; Pain 01/03, Adult; nj1
--- NOTE | 2022-08-09 20:56 | EDPHYS ---
Physician Documentation [facility] Name: Mary Alvarenga Age: 37 yrs Sex: Female : 1985 Arrival Date: 08/09/2022 Time: 18:54 Bed 11 Private MD: ED Physician Huy Sebastian HPI: 08/09 20:00 This 37 yrs old Female presents to ER via Ambulatory with complaints of Knee cp Injury, Knee Pain. 20:00 The patient presents with pain. cp 20:00 The complaints affect the right knee. Patient is a 37-year-old female who presents to the emergency department with complaints of right knee pain. Patient reports she has had problems with her right knee for the past couple months but today her right knee gave out causing her to fall onto the knee. Patient reports she has been seen by Dr. Sage, a local orthopedist, and has been referred to physical therapy for her right knee pain. Patient is awaiting appointment with physical therapy. Historical: - Allergies: 19:13 Amoxicillin; nj1 - PMHx: 19:13 Hypertensive disorder; nj1 - PSHx: 19:13 section; Ligation of fallopian tube; Cholecystectomy; nj1 - Immunization history:: Client reports receiving the 2nd dose of the Covid vaccine. - Social history:: Smoking status: Patient denies any tobacco usage or history of. ROS: 20:05 Constitutional: Negative for body aches, chills, fever, poor PO intake. cp 20:05 Eyes: Negative for injury, pain, redness, and discharge. cp 20:05 Cardiovascular: Negative for chest pain, edema, palpitations. 20:05 Respiratory: Negative for cough, shortness of breath, wheezing. 20:05 Abdomen/GI: Negative for abdominal pain, nausea, vomiting, and diarrhea. 20:05 MS/extremity: Positive for pain, tenderness, of the right knee, Negative for decreased range of motion, deformity, paresthesias. 20:05 Neuro: Negative for headache, numbness, weakness. cp 20:05 All other systems are negative. cp Exam: 20:10 Constitutional: The patient appears in no acute distress, alert, awake, non-toxic, well cp developed, well nourished, uncomfortable. 20:10 Head/Face: Normocephalic, atraumatic. cp 20:10 Neck: ROM/movement: is normal, is supple, without pain, no range of motions limitations. 20:10 Chest/axilla: Inspection: normal. 20:10 Cardiovascular: Rate: tachycardic. cp 20:10 Respiratory: the patient does not display signs of respiratory distress, Respirations: normal, no use of accessory muscles, no retractions, labored breathing, is not present. 20:10 Abdomen/GI: Exam negative for discomfort, distension, guarding, Inspection: abdomen appears normal. 20:10 Back: pain, is absent, ROM is normal. 20:10 Musculoskeletal/extremity: Extremities: noted in the right knee: pain, tenderness, There is no evidence of decreased ROM, deformity, ROM: limited passive range of motion due to pain, in the right knee, Perfusion: the extremity is normally perfused throughout, the right knee Sensation intact. DVT Exam: No signs of deep vein thrombosis. 20:10 Skin: cellulitis, is not appreciated, no rash present. Vital Signs: 19:09 BP 150 / 105; Pulse 106; Resp 18; Temp 98.2; Pulse Ox 100% ; Weight 90.72 kg; Height 5 nj1 ft. 4 in. ; Pain 10/10; 20:20 BP 150 / 99; Pulse 92; Resp 16; Pulse Ox 100% on R/A; Pain 10/10; pf1 21:00 BP 144 / 78; Pulse 89; Resp 16; Pulse Ox 99% ; Pain 5/10; pf1 19:09 Body Mass Index 34.33 (90.72 kg, 162.56 cm) nj1 19:09 Pain Scale: Adult nj1 20:20 Pain Scale: Adult pf1 21:00 Pain Scale: Adult pf1 MDM: 19:16 Patient medically screened. cp 20:00 Differential diagnosis: dislocation, closed fracture, contusion, knee effusion, DVT, cp septic joint. 20:55 Data reviewed: vital signs, nurses notes, radiologic studies, plain films. cp 20:55 Consideration of Admission/Observation Escalation of care including cp admission/observation considered. Test considered but Not performed: MRI: knee. Care significantly affected by the following chronic conditions: Hypertension. Counseling: I had a detailed discussion with the patient and/or guardian regarding: the historical points, exam findings, and any diagnostic results supporting the discharge/admit diagnosis, radiology results, the need for outpatient follow up, a orthopedic surgeon. Response to treatment: the patient's symptoms have mildly improved after treatment, and as a result, I will discharge patient. 08/09 19:31 Order name: XRAY Knee RIGHT 3 view; Complete Time: 20:55 cp 08/09 20:55 Order name: Knee Immobilizer; Complete Time: 21:17 cp 08/09 20:55 Order name: Crutches; Complete Time: 21:17 cp Administered Medications: 20:30 Drug: Acetaminophen PO 1000 mg Route: PO; mb9 20:55 Follow up: Response: No adverse reaction; Marked relief of symptoms; Pain is decreased pf1 21:00 Drug: Ketorolac IM 30 mg Route: IM; Site: right ventrogluteal; pf1 21:18 Follow up: Response: No adverse reaction; Marked relief of symptoms; Pain is decreased pf1 Disposition: 08/10 07:47 Co-signature as Attending Physician, Huy Sebastian DO I was immediately available on-site ms3 in the Emergency Department for consultation in the care of the patient. . Disposition Summary: 08/09/22 20:55 Discharge Ordered Location: Home cp Problem: an ongoing problem cp Symptoms: have improved cp Condition: Stable cp Diagnosis - Pain in right knee cp Followup: cp - With: Master Sage MD - When: 2 - 3 days - Reason: Recheck today's complaints Discharge Instructions: - Discharge Summary Sheet cp - Elastic Bandage and RICE Therapy cp - How to Use a Knee Immobilizer cp - Chronic Knee Pain, Adult cp Forms: - Medication Reconciliation Form cp - Thank You Letter cp - Antibiotic Education cp - Prescription Opioid Use cp Prescriptions: - Diclofenac Sodium 75 mg Oral Tablet Sustained Release - take 1 tablet by ORAL route 2 times per day; 30 tablet; Refills: 0, Product cp Selection Permitted Signatures: Dispatcher [employer] EDDavid Miranda PA PA cp Huy Sebastian DO DO ms3 Ayla Irizarry RN RN mb9 Karyn Rachel RN RN pf1 Saadia Noguera RN RN nj1
[2022-08-09] MEDS ORDERED: KETOROLAC 30 MG/ML INJ ONE (21:04)
[2022-08-09 21:28] VITALS: BP 150/99; TEMP 98.2; O2SAT 100
== END 2022-08-09 21:18 | disposition home or self-care (01) ==
LOC: ER 18:54
DX: M25.561 Pain in right knee (principal); Z88.1 Allergy status to other antibiotic agents
CPT/HCPCS: 96372; 99284

== ENCOUNTER 2024-02-26 16:59 | Emergency (ER) | payer OTHER ==
--- OUTSIDE RECORDS SUMMARY | 2024-02-26 17:03 | XMS REPORT | Continuity of Care Document ---
Author Name Unknown Address [address] [facility] [address] [place] [address] [facility] thconnect Address [address] [place] [address] Care Team Providers Care Shrimp Header Name Role Phone Jemima Reardon MD, Jalil Sullivanmariann Primary Care Physici an LISA GONZALEZ Attending Clinician Unavailable ZAYDA PAUL Attending Clinician Unavailab yamile CABRALES Attending Clinician Unavailable DIAMOND CASSIDY Attending Clinician Unavailable MARISOL RIVERO Attending Clinician Unavailable MARISELA BAXTER Attending Clinician Unavailable GAIL RAMOS MEDICAL Attending Clinicia n Unavailable MIGUEL SWAN Attending Clinician Unavailable Jn Siddiqi MD Attending Clinician [phone] Miranda Mcintosh MD Attending Clinician [phone] MIRANDA MCINTOSH Attending Clinician Unavailable Miranda Mcintosh MD Admitting Clinician [phone] MIRANDA MCINTOSH Admitting Clinician Unavailable Payers Payer Name Policy Type Policy Number Effective Date Expirati on Date Source [facility] [id number] 2022 00:00:00 [employer] MP [facility] [address] ON 9 [id number] 2023 00:00:00 [employer] HMO [id number] 2023 00:00:00 [facility] [id number] 2016 00:00:00 Problems Condition Name Condition Details Condition Category Status Onset Date Resolution Date Last Treatment Date Treating Clinician Comments Source Well adult exam Well adult exam Disease Active 04-12 00:00: 00 Gail Jorgensenold - Externa l Obesity (BMI 30-39.9) Obesity (BMI 30-39.9) Disease Active 04-12 00:00: 00 Gail Semooseold - Externa l Primary hypertensi on Primary hypertensi on Disease Active 04-12 00:00: 00 Gail Seybold - Externa l Rheumatoid arthritis involving right knee (multi HCC) Rheumatoid arthritis involving right knee (multi HCC) Disease Active 04-12 00:00: 00 Gail Jorgensenold - Externa l Chest pain, unspecifie d type Chest pain, unspecifie d type Disease Active 12-17 00:00: 00 [facility] Primary hypertensi on Primary hypertensi on Disease Active 12-17 00:00: 00 [facility] Anxiety Anxiety Disease Active 12-17 00:00: 00 [facility] Single liveborn, born in hospital, delivered by delivery Single liveborn, born in hospital, delivered by delivery Disease Active 09-02 00:00: 00 [facility] Status post repeat low transverse section Status post repeat low transverse section Disease Active 09-02 00:00: 00 [facility] Obesity (BMI 30-39.9) Obesity (BMI 30-39.9) Disease Active 09-01 00:00: 00 [facility] 39 weeks gestation of 39 weeks gestation of Disease Active 08-31 00:00: 00 [facility] Previous section complicati ng , antepartum condition or complicati on Previous section complicati ng , antepartum condition or complicati on Disease Active 08-31 00:00: 00 [facility] Encounter for tubal ligation Encounter for tubal ligation Disease Active 08-31 00:00: 00 [facility] Subchorion ic hematoma in first trimester, single or unspecifie d fetus Subchorion ic hematoma in first trimester, single or unspecifie d fetus Disease Active 2016-03 00:00: 00 [facility] Abdominal pain affecting Abdominal pain affecting Disease Active 2016-03 00:00: 00 [facility] Allergies, Adverse Reactions, Alerts Allergy Name Allergy Type Status Severity Reaction(s) Onset Date Inactive Date Treating Clinician Comments Source Duloxeti ne Propensi ty to adverse reaction s Active 11-12 00:00: 00 Gail Damona l Amoxicil sommer Propensi ty to adverse reaction s Active Hives 04-11 00:00: 00 Gail Damona l Loperami de Propensi ty to adverse reaction s Active Rash 2016-03 00:00: 00 Gail Damona l Loperami de Hcl Propensi ty to adverse reaction s Active Rash 2016-03 00:00: 00 [facility] LOPERAMI DE HCL DRUG INGREDI Active Rash 2016-03 00:00: 00 [facility] Amoxicil sommer Propensi ty to adverse reaction s Active Hives 2016-03 0 00:00: 00 [facility] AMOXICIL SOMMER DRUG INGREDI Active Hives 2016-03 0 00:00: 00 [facility] Amoxicil sommer Allergy to substanc e Active Rash 07-22 00:00: 00 [facility] Social History Social Habit Start Date Stop Date Quantity Comments Source Sexual orientation 2023-04-12 10:41:36 Heterosexual (finding) Gail Christie - External History SDOH Alcohol Frequency [facility] History SDOH Alcohol Std Drinks [facility] History SDOH Alcohol Binge [facility] History of tobacco use Cigarette Smoker Gail hytlon - External Alcoholic beverage intake 2023-11-13 00:00:00 2023-11-13 00:00:00 Current drinker of alcohol (finding) Gail Christie - External Alcohol intake 2023-05-11 00:00:00 2023-05-11 00:00:00 Current drinker of alcohol (finding) Gail Christie - External Tobacco use and exposure 2023-04-11 00:00:00 2023-04-11 00:00:00 Smokeless tobacco non-user Gail Christie - External History of Social function 2023-04-11 00:00:00 2023-04-11 00:00:00 Gail Christie - External Tobacco Comment 2023-04-11 00:00:00 2023-04-11 00:00:00 Stopped 20 years ago Gail Christie - External Alcohol Comment 2023-04-11 00:00:00 2023-04-11 00:00:00 socially Gail Christie - External Exposure to SARS-CoV-2 (event) 2021-12-07 00:00:00 2021-12-17 08:32:00 Not sure [facility] Sex assigned at 1985 00:00:00 1985 00:00:00 F Gail Christie - External Smoking Status Start Date Stop Date Source Ex-smoker 2023-04-11 00:00:00 2023-04-11 00:00:00 Abundio bryant Christie - Grace Never smoked tobacco [facility] Medications Ordered Medication Name Filled Medication Name Start Date Stop Date Current Medication? Ordering Clinician Indication Dosage Frequency Signature (SIG) Comments Components Source Cetirizine (ZYRTEC) 10 MG oral Tablet 11-12 11:02: 49 Yes 10mg QD Take 1 tablet (10 mg total) by mouth daily. Gail mendieta Magnesium 300 MG oral Capsule 11-12 11:02: 49 Yes 1{capsu le} QD Take 1 capsule by mouth daily. Gail mendieta EPINEPHrine 0.3 MG/0.3 ML IJ SOAJ 11-06 00:00: 00 Yes ADMINISTER 0.3ML INTO THE MUSCLE ONE TIME. MAY REPEAT ONE TIME Gail mendieta Duloxetine HCl [address] Particles 11-02 00:00: 00 11-12 00:00 :00 No TAKE 1 CAPSULE BY MOUTH EVERY DAY AT BEDTIME NEEDED FOR ANXIETY AND CHRONIC PAIN Gail mendieta predniSONE (DELTASONE) 5 MG oral Tablet 10-11 00:00: 00 Yes [id number] Prednisone 30 mg/day x 3 days, 20 mg/day x 3 days, 10 mg/day x 3 days, 5 mg/day x 21 days. Gail mendieta Leflunomide 20 MG oral Tablet 10-11 00:00: 00 Yes [id number] 20mg QD Take 1 tablet (20 mg total) by mouth daily. Gail mendieta Cetirizine (ZYRTEC) 10 MG oral Tablet 05-11 10:59: 32 Yes 10mg QD Take 1 tablet (10 mg total) by mouth daily. Gail mendieta Magnesium 300 MG oral Capsule 05-11 10:59: 32 Yes 1{capsu le} QD Take 1 capsule by mouth daily. Gail mendieta Amlodipine Besylate 10 MG oral Tablet 05-05 00:00: 00 Yes [id number] 10mg QD Take 1 tablet (10 mg total) by mouth daily. Gail mendieta Amlodipine Besylate 10 MG oral Tablet 04-28 09:10: 44 Yes 10mg Take 1 tablet (10 mg total) by mouth daily. Gail mendieta Cetirizine (ZYRTEC) 10 MG oral Tablet 04-28 09:10: 44 Yes 10mg Take 1 tablet (10 mg total) by mouth daily. Gail mendieta Magnesium 300 MG oral Capsule 04-28 09:10: 44 Yes 1{capsu le} Take 1 capsule by mouth daily. Gail mendieta Methotrexat e Sodium 2.5 MG oral Tablet 04-28 00:00: 00 05-26 05:59 :00 No [id number] Week 1: 6 tabs (15 mg) once Week 2: 7 tabs (17.5 mg) once Week 3 and beyond: 8 tabs (20 mg) once a week. Gail mendieta Folic Acid 1 MG oral tablet 04-21 00:00: 00 05-22 05:59 :00 No [id number] 1mg Take 1 tablet (1 mg total) by mouth daily. Gail mendieta Methotrexat e Sodium 2.5 MG oral Tablet 04-21 00:00: 00 05-20 05:59 :00 No [id number] Week 1: 6 tabs (15 mg) onceWeek 2: 7 tabs (17.5 mg) onceWeek 3 and beyond: 8 tabs (20 mg) once a week. Gail mendieta Amlodipine Besylate 10 MG oral Tablet 04-20 10:45: 47 Yes 10mg Take 1 tablet (10 mg total) by mouth daily. Gali mendieta Cetirizine (ZYRTEC) 10 MG oral Tablet 04-20 10:45: 47 Yes 10mg Take 1 tablet (10 mg total) by mouth daily. Gail mendieta Magnesium 300 MG oral Capsule 04-20 10:45: 47 Yes 1{capsu le} Take 1 capsule by mouth daily. Gail mendieta Amlodipine Besylate 10 MG oral Tablet 04-12 08:13: 51 Yes 10mg Take 1 tablet (10 mg total) by mouth daily. Gail mendieta Cetirizine (ZYRTEC) 10 MG oral Tablet 04-12 08:13: 51 Yes 10mg Take 1 tablet (10 mg total) by mouth daily. Gail mendieta Magnesium 300 MG oral Capsule 04-12 08:13: 51 Yes 1{capsu le} Take 1 capsule by mouth daily. Gail mendieta amLODIPine (Norvasc) 10 MG tablet 2022-03 11:14: 46 Yes 10mg QD Take 10 mg by mouth 1 (one) time each day. [facility] Meloxicam 15 MG oral Tablet 2022-03 00:00: 00 Yes 15mg QD Take 1 tablet (15 mg total) by mouth daily. Gail mendieta Phentermine HCl 37.5 MG oral Tablet 2022-03 1 00:00: 00 Yes 37.5mg QD Take 1 tablet (37.5 mg total) by mouth daily. Gail mendieta methocarbam ol (Robaxin) 500 MG tablet 2022-03 0 00:00: 00 Yes TAKE 1 TABLET BY MOUTH 3 TIMES PER DAY NEEDED [facility] diclofenac (Voltaren) 75 MG EC tablet 2022-03 0 00:00: 00 02-20 00:00 :00 No TAKE 1 TABLET (75 MG) BY MOUTH 2 TIMES PER DAY NEEDED [facility] amLODIPine 10 mg tablet 12-18 16:40: 09 Yes 10mg Take 10 mg by mouth in the morning. [facility] maalox:diph enhydrAMINE :lidocaine 2 % viscous 1:1:1 ([facility]) oral suspension 15 mL 12-18 03:15: 00 12-18 02:39 :00 No 15mL 15 mL, Oral, ONCE, 1 dose, On Mon12/17/21 at 2215, Routine [facility] amLODIPine (NORVASC) tablet 10 mg 12-18 02:30: 00 Yes 10mg 10 mg, Oral, QHS, First dose (after last modificati on) on Mon12/17/21 at 2130, Until Discontinu ed, Routine [facility] zolpidem (AMBIEN) tablet 5 mg 12-18 02:21: 45 Yes 5mg 5 mg, Oral, QHSPRN, Starting on Mon12/17/21 at 2121, Until Discontinu ed, Routine, Insomnia [facility] pantoprazol e 40 mg EC tablet 12-18 00:00: 00 01-18 04:59 :00 No [id number] 40mg Take 1 tablet by mouth in the morning for 30 days. [facility] enoxaparin (LOVENOX) injection 40 mg 12-17 22:00: 00 Yes 40mg 40 mg, Subcutaneo us, DAILY, First dose on Mon12/17/21 at 1700, Until Discontinu ed, Routine [facility] nitroglycer in (NITROSTAT) sublingual tablet 0.4 mg 12-17 19:54: 06 Yes .4mg 0.4 mg, Sublingual , Q5MIN PRN, Starting on Mon12/17/21 at 1454, Until Discontinu ed, Routine, Chest pain [facility] ondansetron (ZOFRAN (PF)) injection 4 mg 12-17 19:53: 54 Yes 4mg 4 mg, Slow IV Push, Q6HPRN, Starting on Mon12/17/21 at 1453, Until Discontinu ed, Routine, Nausea and Vomiting (N/V) [facility] morpHINE (4 mg/mL) injection 4 mg 12-17 19:53: 51 12-18 19:52 :51 No 4mg 4 mg, Slow IV Push, Q4HPRN, Starting on Mon12/17/21 at 1453, Until 12/18/21 at 1452, Routine, Pain (scale 7-10) [facility] HYDROcodone -acetaminop hen (NORCO 5) 5-325 mg tablet 1 tablet 12-17 19:53: 44 12-19 19:52 :44 No 1{tbl} 1 tablet, Oral, Q6HPRN, Starting on Mon12/17/21 at 1453, Until Mon12/19/21 at 1452, Routine, Pain (scale 4-6) [facility] acetaminoph en (TYLENOL) tablet 650 mg 12-17 19:53: 39 Yes 650mg 650 mg, Oral, Q6HPRN, Starting on Mon12/17/21 at 1453, Until Discontinu ed, Routine, Pain (scale 1-3) [facility] morpHINE (4 mg/mL) injection 4 mg 12-17 18:30: 00 12-17 17:44 :00 No 4mg 4 mg, Slow IV Push, ONCE, 1 dose, On Mon12/17/21 at 1330, MOY [facility] ketorolac (TORADOL) injection 30 mg 12-17 17:00: 00 12-17 16:11 :00 No 30mg 30 mg, Slow IV Push, ONCE, 1 dose, On Mon12/17/21 at 1200, [facility] morpHINE (4 mg/mL) injection 4 mg 12-17 17:00: 00 12-17 16:11 :00 No 4mg 4 mg, Slow IV Push, ONCE, 1 dose, On Mon12/17/21 at 1200, [facility] iopamidol (ISOVUE 370-500 mL) injection 64 mL 12-17 16:27: 00 12-17 16:45 :00 No [id number] 64mL 64 mL, Intravenou s, ONCE, 1 dose, On Mon12/17/21 at 1145, Routine [facility] ondansetron (ZOFRAN (PF)) injection 4 mg 12-17 16:15: 00 12-17 16:11 :00 No 4mg 4 mg, Slow IV Push, ONCE, 1 dose, On Mon12/17/21 at 1115, [facility] vitamin w/FA tablet 09-03 00:00: 00 12-17 00:00 :00 No 1{tbl} Take 1 tablet by mouth daily. [facility] docusate calcium 240 mg capsule 09-03 00:00: 00 12-17 00:00 :00 No 240mg Take 1 capsule by mouth once daily as needed for Constipati on. [facility] ferrous sulfate 325 mg (65 mg iron) tablet 09-03 00:00: 00 12-17 00:00 :00 No 325mg Take 1 tablet by mouth 2 (two) times daily. [facility] HYDROcodone -acetaminop hen (NORCO) 10-325 mg tablet 09-01 00:00: 00 12-17 00:00 :00 No 1{tbl} Take 1 tablet by mouth every 6 (six) hours as needed for Pain (scale 1-3), Pain (scale 4-6) or Pain (scale 7-10). [facility] ibuprofen 800 mg tablet 2017-09-01 00:00: 00 12-17 00:00 :00 No 800mg Take 1 tablet by mouth every 8 (eight) hours as needed for Pain (scale 1-3). [facility] Vital Signs Vital Name Observation Time Observation Value Comments S sylvia Systolic blood pressure 2023-11-13 16:01:00 112 mm[Hg] Gail Seybo ld - External Diastolic blood pressure 2023-11-13 16:01:00 62 mm[Hg] Gail Seybo ld - External Heart rate 2023-11-13 16:01:00 102 /min Kelse y Seybold - External Body temperature 2023-11-13 16:01:00 36.89 Nataliya Gail Seybold - External Respiratory rate 2023-11-13 16:01:00 16 /min Gail Seybold - External Body weight 2023-11-13 16:01:00 82.101 kg Gisel ey Seybold - External BMI 2023-11-13 16:01:00 31.07 kg/m2 Gisel ey Seybold - External Systolic blood pressure 2023-05-11 16:59:00 127 mm[Hg] Gail Seybo ld - External Diastolic blood pressure 2023-05-11 16:59:00 81 mm[Hg] Gail Seybo ld - External Heart rate 2023-05-11 16:59:00 93 /min Kelse y Seybold - External Respiratory rate 2023-05-11 16:59:00 16 /min Gail Seybold - External Body height 2023-05-11 16:59:00 162.6 cm Gisel ey Seybold - External Body weight 2023-05-11 16:59:00 81.194 kg Gisel ey Seybold - External BMI 2023-05-11 16:59:00 30.73 kg/m2 Gisel ey Seybold - External Systolic blood pressure 2023-04-28 15:10:00 119 mm[Hg] Gail Seybo ld - External Diastolic blood pressure 2023-04-28 15:10:00 75 mm[Hg] Gail Seybo ld - External Heart rate 2023-04-28 15:10:00 97 /min Kelse y Seybold - External Body temperature 2023-04-28 15:10:00 36.89 Nataliya Gail Seybold - External Respiratory rate 2023-04-28 15:10:00 16 /min Gail Seybold - External Body height 2023-04-28 15:10:00 162.6 cm Gisel ey Seybold - External Body weight 2023-04-28 15:10:00 79.198 kg Gisel ey Seybold - External BMI 2023-04-28 15:10:00 29.97 kg/m2 Gisel ey Seybold - External Oxygen saturation in Arterial blood by Pulse oximetry 2023-04-28 15:10:00 100 /min Gail Seybo ld - External Systolic blood pressure 2023-04-20 16:51:00 109 mm[Hg] Gail Seybo ld - External Diastolic blood pressure 2023-04-20 16:51:00 70 mm[Hg] Gail Seybo ld - External Heart rate 2023-04-20 16:51:00 93 /min Kelse y Seybold - External Body temperature 2023-04-20 16:51:00 36.56 Nataliya Gail Seybold - External Respiratory rate 2023-04-20 16:51:00 18 /min Gail Seybold - External Body height 2023-04-20 16:51:00 162.6 cm Gisel ey Seybold - External Body weight 2023-04-20 16:51:00 77.565 kg Gisel ey Seybold - External BMI 2023-04-20 16:51:00 29.35 kg/m2 Gisel ey Seybold - External Systolic blood pressure 2023-04-12 14:08:00 118 mm[Hg] Gail Seybo ld - External Diastolic blood pressure 2023-04-12 14:08:00 78 mm[Hg] Gail Seybo ld - External Heart rate 2023-04-12 14:08:00 86 /min Kelse y Seybold - External Body temperature 2023-04-12 14:08:00 36.94 Nataliya Gail Seybold - External Respiratory rate 2023-04-12 14:08:00 16 /min Gail Seybold - External Body height 2023-04-12 14:08:00 162.6 cm Gisel guardado Seybold - External Body weight 2023-04-12 14:08:00 79.89 kg Gisel guardado Seybold - External BMI 2023-04-12 14:08:00 30.23 kg/m2 Gisel ey Seybold - External Oxygen saturation in Arterial blood by Pulse oximetry 2023-04-12 14:08:00 99 /min Gail Babin ld - External Systolic blood pressure 2023-02-20 18:57:00 131 mm[Hg] [facility] Diastolic blood pressure 2023-02-20 18:57:00 86 mm[Hg] [facility] Heart rate 2023-02-20 18:57:00 111 /min [facility] Body temperature 2023-02-20 18:57:00 36.89 Nataliya [facility] Body height 2023-02-20 18:57:00 161.3 cm [facility] Body weight 2023-02-20 18:57:00 [facility]425 [facility] BMI 2023-02-20 18:57:00 30.53 kg[facility]m2 [facility] Systolic blood pressure 2021-12-18 12:36:00 125 mm[Hg] [facility] Diastolic blood pressure 2021-12-18 12:36:00 80 mm[Hg] [facility] Heart rate 2021-12-18 12:36:00 81 /min [facility] Body temperature 2021-12-18 12:36:00 35.56 Nataliya [facility] Respiratory rate 2021-12-18 12:36:00 18 /min [facility] Oxygen saturation in Arterial blood by Pulse oximetry 2021-12-18 12:36:00 98 /min [facility] Body weight 2021-12-18 08:30:00 95.981 kg [facility] BMI 2021-12-18 08:30:00 36.32 kg/m2 [facility] Body height 2021-12-17 20:10:00 162.6 cm [facility] Procedures Procedure Date / Time Performed Performing Clinician Source MAGNESIUM 2021-12-18 09:21:[address] [facility] BASIC METABOLIC PANEL (NA, K, CL, CO2, GLUCOSE, BUN, CREATININE, CA) 2021-12-18 09:21:00 Miranda Mcintosh [facility] LIPID PANEL (89855)(TOTAL CHOLESTEROL, TRIGLYCERIDES, HDL) 2021-12-18 09:21[facility] 2021-12-17 23:36:[address] [facility] TRANSTHORACIC ECHO (TTE) COMPLETE 2021-12-17 20:54:00 [facility] 2021-12-17 17:55:14 Jn Siddiqi [facility] CT CHEST PULMONARY ANGIOGRAM 2021-12-17 16:31:00 Jn Siddiqi [facility] RAPID INFLUENZA A/B 2021-12-17 13:53:00 Jn Siddiqi [facility] COVID-19 (ID NOW RAPID TESTING) 2021-12-17 13:53:00 Jn Siddiqi [facility] LIPASE 2021-12-17 13:43:00 Jn Siddiqi [facility] TEST, SERUM 2021-12-17 13:43:00 Mayito Siddiqi [facility] TROPONIN I 2021-12-17 13:43:00 Jn Siddiqi [facility] THYROID STIMULATING HORMONE 2021-12-17 13:43:00 Jn Siddiqi [facility] COMP. METABOLIC PANEL (00291) 2021-12-17 13:43:00 Jn Siddiqi [facility] CBC WITH DIFF 2021-12-17 13:43:00 Jn Siddiqi [facility] GLYCOSYLATED HEMOGLOBIN (A1C) 2021-12-17 13:43:00 Dayna [facility] Encounters Start Date/Time End Date/Time Encounter Type Admission Type Attending [facility] Care Facility Care Department Encounter ID Source 2022-10-05 09:06:46 Outpatient [facility] [id number] [facility] 2022-09-21 09:10:48 Outpatient [facility] [id number] [facility] 2024-01-30 15:00:00 2024-01-30 15:00:00 Outpatient LISA GONZALEZ [facility] [id number] [facility] 00:00:00 2023-11-24 00:00:00 Outpatient ZAYDA PAUL [id number] Gail Seybold 2023-11-13 11:45:00 2023-11-13 11:45:00 Outpatient SAMRA GAIL LYNN [id number] [facility]ail Seybold 2023-11-13 11:00:00 2023-11-13 11:00:00 Outpatient GONZALEZLISA GAIL LYNN [id number] [facility] 2023-10-12 16:00:00 2023-10-12 16:00:00 Outpatient DIAMOND CASSIDY [id number] [facility] 2023-08-10 10:30:00 2023-08-10 10:30:00 Outpatient DIAMOND CASSIDY [id number] [facility] 2023-05-11 11:15:00 2023-05-11 11:15:00 Outpatient DIAMOND CASSIDY [id number] [facility] 2023-05-05 00:00:00 2023-05-05 00:00:00 Outpatient [facility]AYDA PAUL [id number] [facility] 2023-04-28 10:35:00 2023-04-28 10:35:00 Outpatient KARYYakov GAIL LYNN [id number] [facility] Seybold 2023-04-28 09:00:00 2023-04-28 09:00:00 Outpatient MARISOL RIVERO [id number] [facility] Sey[facility] 2023-04-28 00:00:00 2023-04-28 00:00:00 Outpatient DIAMOND CASSIDY [id number] [facility]ail Seybold 2023-04-25 00:00:00 2023-04-25 00:00:00 Outpatient ZAYDA PAUL [id number] [facility]ail Seybold 2023-04-21 00:00:00 2023-04-21 00:00:00 Outpatient DIAMOND CASSIDY GAIL [id number] [facility] 2023-04-20 11:45:00 2023-04-20 11:45:00 Outpatient SAMRA LYNN GAIL [id number] [facility] 2023-04-20 11:00:00 2023-04-20 11:00:00 Outpatient DIAMOND CASSIDY GAIL [id number] [facility] 2023-04-17 14:00:00 2023-04-17 14:00:00 Outpatient MARISELA BAXTER [facility] [id number] [facility] 2023-04-12 08:00:00 2023-04-12 08:00:00 Outpatient TANIAAUGUSTINEA GAIL LYNN [id number] [facility] 2023-04-12 00:00:00 2023-04-12 00:00:00 Outpatient ZAYDA PAUL [id number] [facility] 2023-04-12 00:00:00 2023-04-12 00:00:00 Outpatient MILDRED RAMOSSEY GAIL LYNN [id number] [facility] 2023-02-20 11:00:00 2023-02-20 11:49:06 Office Visit Marisela Baxter [facility] [address] [facility] [id number] [facility] 2022-12-09 11:00:00 2022-12-09 11:00:00 Outpatient MIGUEL SWAN [facility] [id number] [facility] 2021-12-17 08:36:00 2021-12-18 16:40:00 Emergency Jn Siddiqi Jelani [facility] [id number] [facility] 2021-12-17 08:36:00 2021-12-18 16:40:00 Outpatient MIRANDA BAILEY [facility] [id number] [facility] Results Test Description Test Time Test Comments Results Result Co mments Source [facility] [id number] 10:02:19* Test Item Value Reference Range Interpretation Comme nts MAGNESIUM (test code = 5019710557) 2.0 mg/dL 1.7-2.4 Lab Interpretation (test cod e = 17200-9) Normal [facility] (Total Cholesterol, Triglycerides, HDL)2021-12-18 10:02:19* Test Item Value Reference Range Interpretation Comme nts CHOL (test code = 8854701030) 168 mg/dL 120-200 HDL (test code = 8367840054) 33 mg/dL See_Comment L [Automated [employer]] The system which generated this result transmitted reference range: >=50. The reference range was not used to interpret this result as normal/abnormal. HDLC RATIO (test code = 6617496045) See_Comment H [Automated [employer]] The system which generated this result transmitted reference range: <=4.5. The reference range was not used to interpret this result as normal/abnormal. TRIG (test code = 1684869968) 188 mg/dL 30-170 H LDL CHOL (test code = 32938-0) 97 mg/dL See_Comment [Automated [employer]] The system which generated this result transmitted reference range: <=160. The reference range was not used to interpret this result as normal/abnormal. VLDL (test code = 4641690809) 38 mg/dL 5-60 Lab Interpretation (test code = 64357-2) Abnormal [facility] [id number] 00:34:38* Test Item Value Reference Range Interpretation Comments TROPONIN I (test code = 7010968768) See_Comment [Automated message] The system which generated this result transmitted reference range: <=0.034. The reference range was not used to interpret this result as normal/abnormal. JOHN (test code = JOHN) Reference (Normal) Range (defined by the 99th percentile reference [...] to patient's use of biotin. Lab Interpretation (test code = 97330-8) Normal [facility] (TTE)2021-12-17 21:26:05* Test Item Value Reference Range Interpretation Comme nts Height (test code = [id number]) in Weight (test code = 4262044283) lbs Systolic BP (test code = 4702006473) mmHg Diastolic BP (test code = 8119745902) mmHg Heart Rate (test code = 9947282350) bpm BSA (test code = 9356230854) 1.96 m2 IVS (test code = 8289072023) 0.96 cm Interventricular Septum Diastolic Thickness by 2D (test code = 2898898) 0.96 cm LVPWD (test code = 0621784457) 0.91 cm PW (test code = 3840585639) 0.91 cm 0.6-1.1 LVIDS (test code = 5818495915) 3.00 cm Left Ventricular End Systolic Volume by Teichholz Method (test code = 9533737) 35.3 mL EF(Teich) (test code = 1335907600) 70.80 % LVIDD (test code = 3679695755) 5.00 cm Left Ventricular End Diastolic Volume by Teichholz Method (test code = 8883946) 120.9 mL FS (test code = 7730982643) 40 % EF - 2D (test code = 22244761) 70.80 % LVOT diameter (test code = 8519624095) 2.03 cm LVOT area (test code = 7504970340) 3.20 cm2 ACS (test code = 9398990786) 1.95 cm Ao root diam (test code = 9769028255) 3.40 cm Aortic root (test code = 0075310476) 3.4 cm Ao root annulus (test code = 3783431339) 3.4 cm LA size (test code = 0979962727) 3.9 cm E wave decelartion time (test code = 2287618151) 0.24 s MV Peak E Pedro Luis (test code = 9345653305) 86.1 cm/s MV Peak A Pedro Luis (test code = 5903460251) 64.9 cm/s E/A ratio (test code = 7602891768) ratio MV Prop V (test code = 5829709030) 42.70 cm/s Tapse (test code = 9464667971) 2.27 cm TR Peak Pedro Luis (test code = 7889014008) 169.3 cm/s Triscuspid Valve Regurgitation Peak Gradient (test code = 1680437831) mmHg LVOT stroke volume (test code = 5347972995) 82.60 cm3 LVOT peak pedro luis (test code = 4962173787) 123.4 cm/s LVOT mn grad (test code = 8870178210) mmHg AV LVOT peak gradient (test code = 1496630192) mmHg LVOT peak VTI (test code = 4353928789) 25.5 cm LV V1 mean (test code = 9986353829) 78.30 cm/s Aortic valve mean velocity (test code = 0389787364) 94.1 cm/s Ao peak pedro luis (test code = 3101057667) 151.8 cm/s Ao VTI (test code = 6436951116) 29.4 cm AV area by cont VTI (test code = 5414737660) 2.8 cm2 AV area peak pedro luis (test code = 0835988263) 2.6 cm2 Ao max PG (test code = 8000857340) 9.20 mm[Hg] AV peak gradient (test code = 7880240236) mmHg AV valve area (test code = 4633694646) 2.80 cm2 AV mean gradient (test code = 8508070304) mmHg MR max PG (test code = 5831712208) 53.40 mm[Hg] MR max pedro luis (test code = 7675074094) 365.40 cm/s Mr max pedro luis (test code = 4107840497) 365.4 m/s Radiology Study observation (narrative) (test code = 93919-2) JOHN (test code = JOHN) ?Left?Ventricle: Left [...] apical, parasternal and subcostal views were obtained. [facility]2021-12-17 20:59:42* Test Item Value Reference Range Interpretation Comme nts HGB A1C (test code = 4548-4) 4.6 % 4-5.7 JOHN (test code = JOHN) Reference RangesNormal: <5.7%Prediabetes: 5.7 - 6.4%Diabetes: > 6.5% Lab Interpretation (test code = 02931-6) Normal [facility] [id number] 15:32:04* Test Item Value Reference Range Interpretation Comments TROPONIN I (test code = 8945587980) See_Comment [Automated message] The system which generated this result transmitted reference range: <=0.034. The reference range was not used to interpret this result as normal/abnormal. JOHN (test code = JOHN) Reference (Normal) Range (defined by the 99th percentile reference [...] to patient's use of biotin. Lab Interpretation (test code = 32380-3) Normal [facility] HospitalTHYROID STIMULATING [id number] 14:48:57 * Test Item Value Reference Range Interpretation Comme nts TSH (test code = 2886953967) See_Comment [Automated [employer] ge] The system which generated this result transmitted reference range: 0.45 - 4.70 mIU/L. The reference range was not used to interpret this result as normal/abnormal. Lab Interpretation (test code = 43284-4) Normal [facility]COM. METABOLIC PANEL (98546)2021-12-17 14:19:29* Test Item Value Reference Range Interpretation Comme nts NA (test code = 0775140568) 141 mmol/L 135-145 K (test code = 3765140225) 4.0 mmol/L 3.5-5 CL (test code = 6264139110) 104 mmol/L 98-108 CO2 TOTAL (test code = 8324869472) 24 mmol/L 23-31 AGAP (test code = 9301100477) 2-16 BUN (test code = 6767073190) 16 mg/dL 7-23 GLUCOSE (test code = 8971652232) 100 mg/dL 70-110 CREATININE (test code = 7141162850) 0.62 mg/dL 0.5-1.04 TOTAL BILI (test code = 1676461638) 0.7 mg/dL 0.1-1.1 CALCIUM (test code = 0560677896) 9.3 mg/dL 8.6-10.6 T PROTEIN (test code = 3468407942) 7.9 g/dL 6.3-8.2 ALBUMIN (test code = 6514457634) 4.7 g/dL 3.5-5 ALK PHOS (test code = 8894523441) 96 U/L 34-122 ALTv (test code = 1742-6) 22 U/L 5-35 AST(SGOT) (test code = 8222079211) 21 U/L 13-40 eGFR (test code = 7629588297) mL/min/1.73m2 JOHN (test code = JOHN) Association [...] or urine or abnormalities in imaging tests). [facility]2022-[facility] 14:19:29* Test Item Value Reference Range Interpretation Comme nts LIPASE (test code = 5117920720) 119 U/L 0-220 Lab Interpretation (test cod e = 96347-7) Normal [facility]PREG[facility]NCY TEST, [id number] 14:18:08* Test Item Value Reference Range Interpretation Comme nts PREG SERUM (test code = 5492700566) Negative JOHN (test code = JOHN) Less than 10 IU/L. ?If low titer or ectopic is suspected, resubmit specimen in 48-72 hours. [facility] HospitalCBC WITH [id number] 14:02:27* Test Item Value Reference Range Interpretation Comme nts WBC (test code = 6690-2) See_Comment [Automated [employer]] The system which generated this result transmitted reference range: 4.30 - 11.10 10*3/?L. The reference range was not used to interpret this result as normal/abnormal. RBC (test code = 789-8) See_Comment [Automated [employer] ge] The system which generated this result transmitted reference range: 3.93 - 5.25 10*6/?L. The reference range was not used to interpret this result as normal/abnormal. HGB (test code = 718-7) 12.4 g/dL 11.6-15 HCT (test code = 4544-3) 34.9 % 35.7-45.2 L MCV (test code = 787-2) 83.3 fL 80.6-95.5 MCH (test code = 785-6) 29.6 pg 25.9-32.8 MCHC (test code = 786-4) 35.5 g/dL 31.6-35.1 H RDW-SD (test code = 28350-5) 35.9 fL 39-49.9 L RDW-CV (test code = 788-0) 11.9 % 12-15.5 L PLT (test code = 777-3) See_Comment [Automated [employer]] The system which generated this result transmitted reference range: 166 - 358 10*3/?L. The reference range was not used to interpret this result as normal/abnormal. MPV (test code = 70639-8) 11.5 fL 9.5-12.9 NRBC/100 WBC (test code = 4037976696) See_Comment [Automated [employer]age] The system which generated this result transmitted reference range: 0.0 - 10.0 /100 WBCs. The reference range was not used to interpret this result as normal/abnormal. NRBC x10^3 (test code = 1579985356) See_Comment [Automated [employer]] The system which generated this result transmitted reference range: 10*3/?L. The reference range was not used to interpret this result as normal/abnormal. GRAN MAT (NEUT) % (test code = 770-8) 64.2 % IMM GRAN % (test code = 1794146545) 0.30 % LYMPH % (test code = 736-9) 26.4 % MONO % (test code = 5905-5) 6.2 % EOS % (test code = 713-8) 1.9 % BASO % (test code = 706-2) 1.0 % GRAN MAT x10^3(ANC) (test code = 6020424577) 4.63 10*3/uL 1.88-7.09 IMM GRAN x10^3 (test code = 1057849300) 0-0.06 LYMPH x10^3 (test code = 731-0) 1.90 10*3/uL 1.32-3.29 MONO x10^3 (test code = 742-7) 0.45 10*3/uL 0.33-0.92 EOS x10^3 (test code = 711-2) 0.14 10*3/uL 0.03-0.39 BASO x10^3 (test code = 704-7) 0.07 10*3/uL 0.01-0.07 Lab Interpretation (test code = 21482-7) Abnormal [facility] Notes Date/Time Note Provider Source 2023-11-13 11:02:19 Chief Complaint Patient presents with Allergies Food Allergy Bobbi Andrews T [facility] 2023-05-11 10:59:36 Chief Complaint Patient presents with Seronegative Arthritis Karina Grijalva N [facility] Karina Grijalva [facility] 2023-04-28 09:10:12 Chief Complaint Patient presents with Hematology Consult Easy bruising; referred by Zayda Paul FNP-C Laura E Rivera, CMA II [facility] 2023-04-20 10:45:55 Chief Complaint Patient presents with Consultation Rheumatoid Arthritis Pamela Cota CMA II Y MAN Pamela Cota CMA, II [facility] 2023-04-12 08:13:54 Chief Complaint Patient presents with Physical Physical and fasting labs Loretta Teague LVN [facility]"
[2024-02-26 18:19] LABS: Specific Gravity > 1.030 (1.005-1.030); Sqamous Epithelial <5 /HPF (None Seen); Urine Bacteria <20 /HPF (<20); Urine Bilirubin NEGATIVE (Negative); Urine Blood 1+ (Negative); Urine Clarity Clear (Clear); Urine Color Yellow (Yellow); Urine Crystals Unidentified Few /HPF (None Seen); Urine Culture Reflex Order REFLEXED; Urine Glucose NEGATIVE (Negative); Urine Ketones TRACE (Negative); Urine Micro Reflex YN NO BILL MICROSCOPIC; Urine Mucus 2+ /HPF (None Seen); Urine Nitrite NEGATIVE (Negative); Urine Protein 1+ (Negative); Urine RBC 21-50 /HPF (None Seen); Urine Urobilinogen 1+ (Normal); Urine WBC Clump Rare /HPF (None Seen); Urine Yeast (Budding) Trace /HPF (None Seen); Urine pH 6.5 (5.0-7.0)
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
[2024-02-26] MEDS ORDERED: IBUPROFEN 200 MG TAB PO ONE (20:08)
[2024-02-26] MEDS ORDERED: methocarbamoL 500 MG TAB ONE (20:10)
[2024-02-26] MEDS ORDERED: IBUPROFEN 400 MG TAB ONE (20:10)
[2024-02-26 22:41] VITALS: BP 133/91; TEMP 98.7; O2SAT 98
== END 2024-02-26 20:23 | disposition home or self-care (01) ==
LOC: ER 16:59
DX: M54.2 Cervicalgia (principal); M54.9 Dorsalgia, unspecified; R07.9 Chest pain, unspecified; V43.52XA Car driver injured in collision with other type car in traffic accident, initial encounter; I10 Essential (primary) hypertension
CPT/HCPCS: 71045; 72040; 72070; 72100; 81001; 81025; 87077; 87086; 87088; 87186; 99282